=== PATIENT | female | born 1940 | race Caucasian/White ===

== ENCOUNTER 2016-05-20 17:03 | Emergency (ER) | payer MEDICARE ==
[2016-05-20 17:11] VITALS: RESP 18
--- NOTE | 2016-05-20 17:49 | ED ---
Dizziness HPI - General Chief Complaint: Dizziness Stated Complaint: light-headed, diabetic Time Seen by Provider: 05/20/16 17:34 Source: patient Mode of arrival: wheelchair Limitations: no limitations - History of Present Illness Initial Comments: This patient is a 75-year-old woman who reportedly has a history of some underlying dementia. She comes in to be evaluated after she had an episode of what she describes as being off balance. The patient had driven one of her relatives to work, and then was not feeling like she can drive back home. The patient states that a bystander there did drive the patient's car back to the patient's home, and then call a daughter who came to help. The patient has a difficult time characterizing the sensation. MD Complaint: dizziness -: hour(s) Timing: sudden onset Description: off-balance History of Same: Yes History of Trauma: No Severity: moderate Worsens With: movement Associated Symptoms: denies other symptoms - Related Data Home Medications Medication Instructions Recorded Confirmed Donepezil HCl 10 mg PO W/SUPPER 07/15/14 05/20/16 Memantine [Namenda] 10 mg PO W/SUPPER 07/15/14 05/20/16 Citalopram Hydrobromide [CeleXA] 20 mg PO W/SUPPER 05/20/16 05/20/16 Lisinopril [Zestril] 5 mg PO W/SUPPER 05/20/16 05/20/16 Simvastatin [Zocor] 40 mg PO W/SUPPER 05/20/16 05/20/16 Allergies Allergy/AdvReac Type Severity Reaction Status Date / Time No Known Allergies Allergy Verified 05/20/16 17:11 Review of Systems ROS Statement: Those systems with pertinent positive or pertinent negative responses have been documented in the HPI. ROS Other: All systems not noted in ROS Statement are negative. Constitutional: Denies: fever, weakness Respiratory: Denies: cough, dyspnea, wheezes Cardiovascular: Reports: as per HPI. Denies: chest pain, palpitations, edema, syncope Gastrointestinal: Denies: abdominal pain, vomiting, diarrhea, constipation Genitourinary: Denies: dysuria, hematuria Musculoskeletal: Denies: back pain Skin: Denies: rash Neurological: Reports: confusion. Denies: headache, weakness, numbness Past Medical History Past Medical History: Dementia, Diabetes Mellitus, Hyperlipidemia, Hypertension , Syncope Additional Past Medical History / Comment(s): dvt "years ago" DIABETIC-DIET CONTROLLED History of Any Multi-Drug Resistant Organisms: None Reported Past Surgical History: Bariatric Surgery, Cholecystectomy, Hysterectomy, Tonsillectomy Additional Past Surgical History / Comment(s): lap banding Past Anesthesia/Blood Transfusion Reactions: No Reported Reaction Past Psychological History: No Psychological Hx Reported Smoking Status: Former smoker Past Alcohol Use History: None Reported Additional Past Alcohol Use History / Comment(s): QUIT SMOKING IN 1986 STARTED AGE 17 Past Drug Use History: None Reported - Past Family History Father Family Medical History: Diabetes Mellitus Mother Family Medical History: Myocardial Infarction ([place]) General Exam Limitations: no limitations General appearance: alert, in no apparent distress Head exam: Present: atraumatic, normocephalic Eye exam: Present: normal appearance. Absent: scleral icterus, conjunctival injection Neck exam: Present: normal inspection, full ROM Respiratory exam: Present: normal lung sounds bilaterally. Absent: respiratory distress, wheezes, rales, rhonchi Cardiovascular Exam: Present: regular rate, normal rhythm, normal heart sounds. Absent: systolic murmur, diastolic murmur, rubs, gallop GI/Abdominal exam: Present: soft. Absent: distended, tenderness, guarding, mass Extremities exam: Present: normal capillary refill. Absent: pedal edema, calf tenderness Back exam: Present: normal inspection. Absent: CVA tenderness (R), CVA tenderness (L) Neurological exam: Present: alert. Absent: motor sensory deficit Psychiatric exam: Present: normal affect Skin exam: Present: warm, dry, intact, normal color. Absent: rash Course Vital Signs 05/20/16 05/20/16 17:08 17:35 Temperature 97.8 F Pulse Rate 76 Pulse Rate [ 80 Sitting] Pulse Rate [ 74 Standing] Pulse Rate [ 78 Supine] Respiratory 18 18 Rate Blood Pressure 222/97 Blood Pressure 182/83 [Sitting] Blood Pressure 172/86 [Standing] Blood Pressure 174/69 [Supine] O2 Sat by Pulse 98 Oximetry EKG Findings - EKG Results: EKG: interpreted by ERMTre, sinus rhythm (Rate 70 bpm) - Blocks, [place], Hypertrophy, ST Abn: AV and intraventricular conduction: left bundle branch block (fixed/intermittent , complete/incomplete) QRS axis and voltage: left axis deviation (-30 to -90) Medical Decision Making - Lab Data Result diagrams: 05/20/16 17:50 05/20/16 17:50 Lab Results 05/20/16 05/20/16 05/20/16 Range/Units 17:50 17:50 17:50 WBC 5.4 (3.8-10.6) k/uL RBC 4.32 (3.80-5.40) m/uL Hgb 13.4 (11.4-16.0) gm/dL Hct 40.4 (34.0-46.0) % MCV 93.4 (80.0-100.0) fL MCH 31.0 (25.0-35.0) pg MCHC 33.1 (31.0-37.0) g/dL RDW 12.4 (11.5-15.5) % Plt Count 224 (150-450) k/uL Neutrophils % 66 % Lymphocytes % 25 % Monocytes % 5 % Eosinophils % 1 % Basophils % 1 % Neutrophils # 3.6 (1.3-7.7) k/uL Lymphocytes # 1.4 (1.0-4.8) k/uL Monocytes # 0.3 (0-1.0) k/uL Eosinophils # 0.1 (0-0.7) k/uL Basophils # 0.1 (0-0.2) k/uL Sodium 139 (137-145) mmol/L Potassium 3.7 (3.5-5.1) mmol/L Chloride 101 (98-107) mmol/L Carbon Dioxide 25 (22-30) mmol/L Anion Gap 13 mmol/L BUN 11 (7-17) mg/dL Creatinine 0.74 (0.52-1.04) mg/dL Est GFR (MDRD) Af Amer >60 (>60 ml/min/1.73 sqM) Est GFR (MDRD) Non-Af >60 (>60 ml/min/1.73 sqM) Glucose 133 H (74-99) mg/dL Calcium 9.1 (8.4-10.2) mg/dL Total Bilirubin 0.7 (0.2-1.3) mg/dL AST 19 (14-36) U/L ALT 20 (9-52) U/L Alkaline Phosphatase 60 (38-126) U/L Troponin I <0.012 (0.000-0.034) ng/mL Total Protein 6.8 (6.3-8.2) g/dL Albumin 3.9 (3.5-5.0) g/dL Urine Color Urine Appearance (Clear) Urine pH (5.0-8.0) Ur Specific [place] (1.001-1.035) Urine Protein (Negative) Urine Glucose (UA) (Negative) Urine Ketones (Negative) Urine Blood (Negative) Urine Nitrate (Negative) Urine Bilirubin (Negative) Urine Urobilinogen (<2.0) mg/dL Ur Leukocyte Esterase (Negative) 05/20/16 Range/Units 18:10 WBC (3.8-10.6) k/uL RBC (3.80-5.40) m/uL Hgb (11.4-16.0) gm/dL Hct (34.0-46.0) % MCV (80.0-100.0) fL MCH (25.0-35.0) pg MCHC (31.0-37.0) g/dL RDW (11.5-15.5) % Plt Count (150-450) k/uL Neutrophils % % Lymphocytes % % Monocytes % % Eosinophils % % Basophils % % Neutrophils # (1.3-7.7) k/uL Lymphocytes # (1.0-4.8) k/uL Monocytes # (0-1.0) k/uL Eosinophils # (0-0.7) k/uL Basophils # (0-0.2) k/uL Sodium (137-145) mmol/L Potassium (3.5-5.1) mmol/L Chloride (98-107) mmol/L Carbon Dioxide (22-30) mmol/L Anion Gap mmol/L BUN (7-17) mg/dL Creatinine (0.52-1.04) mg/dL Est GFR (MDRD) Af Amer (>60 ml/min/1.73 sqM) Est GFR (MDRD) Non-Af (>60 ml/min/1.73 sqM) Glucose (74-99) mg/dL Calcium (8.4-10.2) mg/dL Total Bilirubin (0.2-1.3) mg/dL AST (14-36) U/L ALT (9-52) U/L Alkaline Phosphatase (38-126) U/L Troponin I (0.000-0.034) ng/mL Total Protein (6.3-8.2) g/dL Albumin (3.5-5.0) g/dL Urine Color Colorless Urine Appearance Clear (Clear) Urine pH 5.5 (5.0-8.0) Ur Specific [place] 1.002 (1.001-1.035) Urine Protein Negative (Negative) Urine Glucose (UA) Negative (Negative) Urine Ketones Negative (Negative) Urine Blood Negative (Negative) Urine Nitrate Negative (Negative) Urine Bilirubin Negative (Negative) Urine Urobilinogen <2.0 (<2.0) mg/dL Ur Leukocyte Esterase Negative (Negative) Disposition Clinical Impression: Dizziness Disposition: HOME SELF-CARE Condition: Good Instructions: Dizziness (ED) Referrals: Remy Castle DO [Primary Care Provider] - 1-2 days
[2016-05-20 18:13] LABS: Basophils # (A) 0.1 k/uL (0-0.2); Basophils % (A) 1 %; CH 32.4; CHCM 34.8; Eosinophils # (A) 0.1 k/uL (0-0.7); Eosinophils % (A) 1 %; HCT 40.4 % (34.0-46.0); HGB 13.4 gm/dL (11.4-16.0); Luc # (Auto) 0.09; Luc % (Auto) 2; Lymphocytes # (A) 1.4 k/uL (1.0-4.8); Lymphocytes % (A) 25 %; MCHC 33.1 g/dL (31.0-37.0); MCV 93.4 fL (80.0-100.0); Mean Platelet Volume 7.2; Monocytes # (A) 0.3 k/uL (0-1.0); Monocytes % (A) 5 %; Neutrophils # (A) 3.6 k/uL (1.3-7.7); Neutrophils % (A) 66 %; RBC 4.32 m/uL (3.80-5.40); RDW 12.4 % (11.5-15.5); WBC 5.4 k/uL (3.8-10.6)
[2016-05-20 18:25] LABS: ALT 20 U/L (9-52); AST 19 U/L (14-36); Alkaline Phosphatase 60 U/L (38-126); Anion Gap 13 mmol/L; Blood Urea Nitrogen 11 mg/dL (7-17); Calcium 9.1 mg/dL (8.4-10.2); Carbon Dioxide 25 mmol/L (22-30); Chloride 101 mmol/L (98-107); Glucose 133 mg/dL (74-99); Non-African American GFR(MDRD) >60 (>60 ml/min/1.73 sqM); Potassium 3.7 mmol/L (3.5-5.1); Sodium 139 mmol/L (137-145); Total Bilirubin 0.7 mg/dL (0.2-1.3); Total Protein 6.8 g/dL (6.3-8.2)
[2016-05-20 18:26] LABS: Appearance,Urine Clear (Clear); Bilirubin,Urine Negative (Negative); Glucose,Urine (UA) Negative (Negative); Ketones,Urine Negative (Negative); Leukocyte Esterase,Urine Negative (Negative); Nitrite,Urine Negative (Negative); PH, Urine 5.5 (5.0-8.0); Protein,Urine Negative (Negative); Specific Gravity,Urine 1.002 (1.001-1.035); UA Billing (MACRO vs. MICRO) CHEM; Urobilinogen,Urine <2.0 mg/dL (<2.0)
[2016-05-20 19:16] VITALS: BP 167/75; PULSE 66; TEMP 98.3
== END 2016-05-20 19:25 | disposition home or self-care (01) ==
LOC: EC 17:03
DX: R42 Dizziness and giddiness (principal); F03.90 Unspecified dementia, unspecified severity, without behavioral disturbance, psychotic disturbance, mood disturbance, and anxiety; E78.5 Hyperlipidemia, unspecified; I10 Essential (primary) hypertension; Z87.891 Personal history of nicotine dependence
CPT/HCPCS: 36415; 80053; 81003; 84484; 85025; 93005; 99284

== ENCOUNTER 2016-07-22 18:50 | Emergency (ER) | payer MEDICARE ==
[2016-07-22 19:00] VITALS: PULSE 62
[2016-07-22] MEDS ORDERED: SODIUM CHLORIDE 0.9% 500 ML IV STA (19:09)
[2016-07-22] MEDS ORDERED: MECLIZINE 12.5 MG TAB PO STA (19:10)
--- NOTE | 2016-07-22 19:12 | ED ---
General Adult HPI - General Chief complaint: Weakness Stated complaint: dizzy Time Seen by Provider: 07/22/16 19:04 Source: patient, family, RN notes reviewed Mode of arrival: wheelchair Limitations: no limitations - History of Present Illness Initial comments: Patient is a pleasant 75-year-old female presenting to the emergency department for not feeling well. Patient has a difficult time describing her symptoms. Patient does admit to feeling lightheaded. No spinning type sensation. No chest pain. No weakness. Patient does feel somewhat confused. History is limited. Onset of symptoms was just ago - Related Data Home Medications Medication Instructions Recorded Confirmed Citalopram Hydrobromide [CeleXA] 20 mg PO W/LUNCH 05/20/16 07/22/16 Lisinopril [Zestril] 5 mg PO W/LUNCH 05/20/16 07/22/16 Memantine HCl/Donepezil HCl 1 cap PO W/LUNCH 07/22/16 07/22/16 [Namzaric 21 mg-10 mg Capsule] Allergies Allergy/AdvReac Type Severity Reaction Status Date / Time No Known Allergies Allergy Verified 07/22/16 19:26 Review of Systems ROS Statement: Those systems with pertinent positive or pertinent negative responses have been documented in the HPI. ROS Other: All systems not noted in ROS Statement are negative. Constitutional: Denies: fever Eyes: Denies: eye pain ENT: Denies: ear pain Respiratory: Denies: cough Cardiovascular: Denies: chest pain Endocrine: Denies: fatigue Gastrointestinal: Denies: abdominal pain Genitourinary: Denies: urgency Musculoskeletal: Denies: back pain Skin: Denies: rash Neurological: Reports: confusion. Denies: headache Past Medical History Past Medical History: Dementia, Diabetes Mellitus, Hyperlipidemia, Hypertension , Syncope Additional Past Medical History / Comment(s): dvt "years ago" DIABETIC-DIET CONTROLLED History of Any Multi-Drug Resistant Organisms: None Reported Past Surgical History: Bariatric Surgery, Cholecystectomy, Hysterectomy, Tonsillectomy Additional Past Surgical History / Comment(s): lap banding Past Anesthesia/Blood Transfusion Reactions: No Reported Reaction Past Psychological History: No Psychological Hx Reported Smoking Status: Former smoker Past Alcohol Use History: None Reported Additional Past Alcohol Use History / Comment(s): QUIT SMOKING IN 1986 STARTED AGE 17 Past Drug Use History: None Reported - Past Family History Father Family Medical History: Diabetes Mellitus Mother Family Medical History: Myocardial Infarction ([place]) General Exam Limitations: no limitations General appearance: alert, in no apparent distress Head exam: Present: atraumatic Eye exam: Present: normal appearance, PERRL, EOMI. Absent: nystagmus ENT exam: Present: normal oropharynx Neck exam: Present: normal inspection Respiratory exam: Present: normal lung sounds bilaterally Cardiovascular Exam: Present: regular rate, normal rhythm GI/Abdominal exam: Present: soft. Absent: tenderness Extremities exam: Present: normal inspection. Absent: pedal edema, calf tenderness Neurological exam: Present: alert, CN II-XII intact. Absent: motor sensory deficit Expanded Neurological exam: Present: other (There may be minimal slurred speech) Patient oriented to: Present: person, place. Absent: time (Patient is oriented to month however not year) Cranial nerves: EOM's Intact: Normal, Facial Sensation: Normal Sensory exam: Upper Extremity Light Touch: Normal, Lower Extremity Light Touch: Normal Motor strength exam: RUE: 5, LUE: 5, RLE: 5, LLE: 5 Psychiatric exam: Present: normal affect, normal mood Skin exam: Present: normal color Course Vital Signs 07/22/16 07/22/16 18:57 21:08 Temperature 98.5 F 97.8 F Pulse Rate 62 Respiratory 16 58 H Rate Blood Pressure 206/90 165/78 O2 Sat by Pulse 96 98 Oximetry - Reevaluation(s) Reevaluation #1: 07/22/16 20:55 Patient reevaluated. Patient and family updated. EKG Findings - EKG Comments: EKG Findings:: Sinus bradycardia 52. VT 172. QRS 154. QT 464. QTC 431. Left axis. Left bundle branch block. Nonspecific ST-T. Medical Decision Making - Medical Decision Making pt reevaluated and updated. case discussed with dr. mills at [facility] who will accept transfer - Lab Data Result diagrams: 07/22/16 19:30 07/22/16 19:30 Lab Results 07/22/16 07/22/16 07/22/16 Range/Units 19:13 19:30 19:30 WBC 4.7 (3.8-10.6) k/uL RBC 4.57 (3.80-5.40) m/uL Hgb 14.7 (11.4-16.0) gm/dL Hct 43.5 (34.0-46.0) % MCV 95.3 (80.0-100.0) fL MCH 32.1 (25.0-35.0) pg MCHC 33.7 (31.0-37.0) g/dL RDW 13.0 (11.5-15.5) % Plt Count 217 (150-450) k/uL Neutrophils % 59 % Lymphocytes % 31 % Monocytes % 5 % Eosinophils % 3 % Basophils % 1 % Neutrophils # 2.7 (1.3-7.7) k/uL Lymphocytes # 1.4 (1.0-4.8) k/uL Monocytes # 0.2 (0-1.0) k/uL Eosinophils # 0.1 (0-0.7) k/uL Basophils # 0.0 (0-0.2) k/uL PT (9.0-12.0) sec INR (<1.1) APTT (22.0-30.0) sec Sodium (137-145) mmol/L Potassium (3.5-5.1) mmol/L Chloride (98-107) mmol/L Carbon Dioxide (22-30) mmol/L Anion Gap mmol/L BUN (7-17) mg/dL Creatinine (0.52-1.04) mg/dL Est GFR (MDRD) Af Amer (>60 ml/min/1.73 sqM) Est GFR (MDRD) Non-Af (>60 ml/min/1.73 sqM) Glucose (74-99) mg/dL POC Glucose (mg/dL) 95 (75-99) mg/dL POC Glu Nursing Unit Clerk ID Julieta Veloz Calcium (8.4-10.2) mg/dL Magnesium (1.6-2.3) mg/dL Total Bilirubin (0.2-1.3) mg/dL AST (14-36) U/L ALT (9-52) U/L Alkaline Phosphatase (38-126) U/L Total Creatine Kinase 45 (30-135) U/L CK-MB (CK-2) 0.8 (0.0-2.4) ng/mL CK-MB (CK-2) Rel Index 1.8 Troponin I <0.012 (0.000-0.034) ng/mL Total Protein (6.3-8.2) g/dL Albumin (3.5-5.0) g/dL 07/22/16 07/22/16 Range/Units 19:30 19:30 WBC (3.8-10.6) k/uL RBC (3.80-5.40) m/uL Hgb (11.4-16.0) gm/dL Hct (34.0-46.0) % MCV (80.0-100.0) fL MCH (25.0-35.0) pg MCHC (31.0-37.0) g/dL RDW (11.5-15.5) % Plt Count (150-450) k/uL Neutrophils % % Lymphocytes % % Monocytes % % Eosinophils % % Basophils % % Neutrophils # (1.3-7.7) k/uL Lymphocytes # (1.0-4.8) k/uL Monocytes # (0-1.0) k/uL Eosinophils # (0-0.7) k/uL Basophils # (0-0.2) k/uL PT 10.7 (9.0-12.0) sec INR 1.1 (<1.1) APTT 22.3 (22.0-30.0) sec Sodium 142 (137-145) mmol/L Potassium 3.9 (3.5-5.1) mmol/L Chloride 104 (98-107) mmol/L Carbon Dioxide 29 (22-30) mmol/L Anion Gap 9 mmol/L BUN 9 (7-17) mg/dL Creatinine 0.72 (0.52-1.04) mg/dL Est GFR (MDRD) Af Amer >60 (>60 ml/min/1.73 sqM) Est GFR (MDRD) Non-Af >60 (>60 ml/min/1.73 sqM) Glucose 94 (74-99) mg/dL POC Glucose (mg/dL) (75-99) mg/dL POC Glu Nursing Unit Clerk ID Calcium 9.6 (8.4-10.2) mg/dL Magnesium 2.1 (1.6-2.3) mg/dL Total Bilirubin 0.6 (0.2-1.3) mg/dL AST 18 (14-36) U/L ALT 24 (9-52) U/L Alkaline Phosphatase 68 (38-126) U/L Total Creatine Kinase (30-135) U/L CK-MB (CK-2) (0.0-2.4) ng/mL CK-MB (CK-2) Rel Index Troponin I (0.000-0.034) ng/mL Total Protein 7.2 (6.3-8.2) g/dL Albumin 4.0 (3.5-5.0) g/dL - Radiology Data Radiology results: image reviewed (This x-ray shows mild vascular prominence. Old rib fracture. Computed tomography scan of the brain shows 1.3 cm interpretable hemorrhage left parietal lobe.) Disposition Clinical Impression: Acute intracranial hemorrhage Disposition: OTHER INSTITUTION NOT DEFINED - Out of Hospital Transfer - Req. Specs Out of Hospital Transfer - Requested Specifics: Other Emergency Center
[2016-07-22 19:14] LABS: Glucose,Whole Blood 95 mg/dL (75-99)
[2016-07-22 19:45] LABS: Basophils % (A) 1 %; CH 31.8; CHCM 33.5; Eosinophils # (A) 0.1 k/uL (0-0.7); Eosinophils % (A) 3 %; HCT 43.5 % (34.0-46.0); HDW 2.47; HGB 14.7 gm/dL (11.4-16.0); Luc % (Auto) 2; Lymphocytes # (A) 1.4 k/uL (1.0-4.8); Lymphocytes % (A) 31 %; MCH 32.1 pg (25.0-35.0); MCHC 33.7 g/dL (31.0-37.0); MCV 95.3 fL (80.0-100.0); Mean Platelet Volume 6.7; Monocytes # (A) 0.2 k/uL (0-1.0); Monocytes % (A) 5 %; Neutrophils # (A) 2.7 k/uL (1.3-7.7); Neutrophils % (A) 59 %; RBC 4.57 m/uL (3.80-5.40); WBC 4.7 k/uL (3.8-10.6); WBC (Perox) 4.63
[2016-07-22 19:53] LABS: INR 1.1 (<1.1); Partial Thromboplastin Time 22.3 sec (22.0-30.0); Prothrombin Time 10.7 sec (9.0-12.0)
[2016-07-22 20:01] LABS: Creatine Kinase 45 U/L (30-135)
[2016-07-22 20:03] LABS: ALT 24 U/L (9-52); AST 18 U/L (14-36); Alkaline Phosphatase 68 U/L (38-126); Anion Gap 9 mmol/L; Blood Urea Nitrogen 9 mg/dL (7-17); Calcium 9.6 mg/dL (8.4-10.2); Carbon Dioxide 29 mmol/L (22-30); Chloride 104 mmol/L (98-107); Glucose 94 mg/dL (74-99); Magnesium 2.1 mg/dL (1.6-2.3); Non-African American GFR(MDRD) >60 (>60 ml/min/1.73 sqM); Potassium 3.9 mmol/L (3.5-5.1); Sodium 142 mmol/L (137-145); Total Bilirubin 0.6 mg/dL (0.2-1.3); Total Protein 7.2 g/dL (6.3-8.2)
[2016-07-22 20:13] LABS: Creatine Kinase MB 0.8 ng/mL (0.0-2.4); Troponin I <0.012 ng/mL (0.000-0.034)
--- NOTE | 2016-07-22 20:31 | XR ---
EXAMINATION TYPE: XR chest 2V DATE OF EXAM: 07/22/2016 8:11 PM COMPARISON: 07/14/2014 INDICATION: Weakness dizziness nausea TECHNIQUE: Single frontal view of the chest is obtained. FINDINGS: The heart size is normal. The pulmonary vasculature is prominent. The lungs are clear. Old right rib fractures are evident. IMPRESSION: 1. Mild vascular prominence. No suspicious infiltrates. 2. Some senile emphysematous change may be present.
--- NOTE | 2016-07-22 20:38 | CT ---
EXAMINATION TYPE: CT brain wo con DATE OF EXAM: 07/22/2016 8:23 PM COMPARISON: NONE INDICATION: Pt states of being light headed and confused. DLP: 1051.2 mGycm, Automated exposure control for dose reduction was used. CONTRAST: None CT of the brain is performed utilizing 3 mm thick sections through the posterior fossa and 3 mm thick sections through the remaining calvarium. Study is performed within 24 hours of arrival to the hosp ital. There is a 1.3 cm hyperdensity measuring 60-70 Hounsfield units within the subcortical left parietal lobe. This is a new finding from 07/14/2014. An acute hemorrhage should be considered. Underlying mass could be considered. Significant vasogenic edema is not identified suggesting hemorrhage more likely within the differential. There is periventricular white matter hypodensity, likely on the basis of chronic white matter ischem ic changes. Some minimal subcortical hemorrhage may be near the left posterior frontal lobe gyrus. Se eri 5 image 39. No acute infarcts are evident. Ventricles and sulci are appropriate for the patient age. Paranasal sinuses and mastoid air cells within the [id number] are clear. Hyperostosis frontalis in ternus is present. IMPRESSIONS: 1. 1.3 cm intraparenchymal hemorrhage left parietal lobe. 2. Small intraparenchymal hemorrhage at the left posterior frontal lobe vertex. 3. Report was called to the emergency room physician by Dr. Eason by telephone 2030 hours 07/22/2016 . 4. Atrophy with periventricular white matter ischemic changes.
[2016-07-22 21:08] VITALS: BP 165/78; RESP 58; TEMP 97.8
== END 2016-07-22 21:50 | disposition short-term general hospital (02) ==
LOC: EC 18:50
DX: I62.9 Nontraumatic intracranial hemorrhage, unspecified (principal); F03.90 Unspecified dementia, unspecified severity, without behavioral disturbance, psychotic disturbance, mood disturbance, and anxiety; I10 Essential (primary) hypertension; Z87.891 Personal history of nicotine dependence; Z79.899 Other long term (current) drug therapy
CPT/HCPCS: 36415; 70450; 71020; 80053; 82550; 82553; 83735; 84484; 85025; 85610; 85730; 93005; 99285

== ENCOUNTER 2018-06-12 10:37 | Inpatient (IN) | payer MEDICARE ==
[2018-06-12] MEDS ORDERED: SODIUM CHLORIDE 0.9% 500 ML 500 ML IV ONE (10:55)
[2018-06-12] MEDS ORDERED: fentaNYL (PF) 50 MCG/ML 2 ML AMP IVP STA (10:57)
--- NOTE | 2018-06-12 11:00 | ED ---
General Adult HPI - General Chief complaint: Fall Stated complaint: trip & fall Time Seen by Provider: 06/12/18 10:39 Source: patient, EMS Mode of arrival: EMS Limitations: no limitations - History of Present Illness Initial comments: Dictation was produced using [employer] dictation software. please excuse any grammatical, word or spelling errors. Chief Complaint: 77-year-old female past medical history dementia, diabetes, d yslipidemia presents after fall. History of Present Illness: Patient is a 77-year-old female presents with hip pain and right upper extremity pain after fall. Patient has a history of dementia. She is a poor historian. Daughter at bedside is able to assist in providing HPI. Patient lives alone at home by herself. She does not recall being as active instead transpired prior to the fall. She states she however did not lose consciousness. Patient states that she fell. She does believe maybe she may have tripped over her own feet or carpet. She does complain of some right forearm pain and left hip pain. Patient is brought in by EMS. EMS report stable vital signs upon arrival. The ROS documented in this emergency department record has been reviewed and confirmed by me. Those systems with pertinent positive or negative responses have been documented in the HPI. All other systems are other negative and/or noncontributory. PHYSICAL EXAM: General Impression: Alert and oriented x3, not in acute distress HEENT: Normocephalic atraumatic, extra-ocular movements intact, pupils equal and reactive to light bilaterally, mucous membranes moist. Cardiovascular: Heart regular rate and rhythm, S1&S2 audible, no murmurs, rubs or gallops Chest: Lungs clear to auscultation bilaterally, no rhonchi, no wheeze, no rales Abdomen: Bowel sounds present, abdomen soft, non-tender, non-distended, no organomegaly Musculoskeletal: Short and externally rotated left lower extremity. Patient has some tenderness to palpation over the right forearm. Upper extremities otherwise ranged and removed without any complications. Patient does have tenderness to palpation of the left lateral greater trochanter. Motor: no focal deficits noted Neurological: CN II-XII grossly intact, no focal motor or sensory deficits noted Skin: Intact with no visualized rashes Psych: Normal affect and mood ED course: 77-year-old female presents after fall. Physical examination positive for pain to the right forearm and possible acute traumatic injury to the left hip. Vital signs upon arrival are within acceptable limits. Patient otherwise well-appearing. Patient does not have any external signs of injury to the head, neck, abdomen. Laboratory evaluation obtained. CBC, coag panel, metabolic panel is unremarkable. Urinalysis is negative. Head CT shows no acute processes. C-spine mind CT shows no acute processes. CT of the left hip shows left more neck fracture of the subcapital and displaced. Patient's case discussed with Sandor VORA. Patient be admitted to Dr. Sharif. Medicine is on consult. EKG interpretation: Ventricular rate 74, paced rhythm, [place] interval 182, QS 174, QTc 528. No [place] prolongation, no ST or T-wave changes noted. Overall, this EKG is unremarkable - Related Data Home Medications Medication Instructions Recorded Confirmed Citalopram Hydrobromide [CeleXA] 20 mg PO DAILY 05/20/16 06/12/18 Lisinopril [Zestril] 5 mg PO DAILY 05/20/16 06/12/18 Atorvastatin [Lipitor] 40 mg PO HS 06/12/18 06/12/18 HYDROcodone/APAP 5-325MG [[place] 1 tab PO Q4HR PRN 06/12/18 06/12/18 5-325] Metoprolol Tartrate [Lopressor] 12.5 mg PO DAILY 06/12/18 06/12/18 Pantoprazole Sodium [Protonix] 40 mg PO DAILY 06/12/18 06/12/18 QUEtiapine [SEROquel] 25 mg PO HS 06/12/18 06/12/18 levETIRAcetam [Keppra] 250 mg PO Q12HR 06/12/18 06/12/18 Allergies Allergy/AdvReac Type Severity Reaction Status Date / Time No Known Allergies Allergy Verified 06/12/18 10:58 Review of Systems ROS Statement: Those systems with pertinent positive or pertinent negative responses have been documented in the HPI. ROS Other: All systems not noted in ROS Statement are negative. Past Medical History Past Medical History: Dementia, Diabetes Mellitus, Hyperlipidemia, Hypertension, Syncope Additional Past Medical History / Comment(s): dvt "years ago" DIABETIC-DIET CONTROLLED History of Any Multi-Drug Resistant Organisms: None Reported Past Surgical History: Bariatric Surgery, Cholecystectomy, Hysterectomy, Tonsillectomy Additional Past Surgical History / Comment(s): lap banding Past Anesthesia/Blood Transfusion Reactions: No Reported Reaction Past Psychological History: No Psychological Hx Reported Smoking Status: Former smoker Past Alcohol Use History: None Reported Past Drug Use History: None Reported - Past Family History Father Family Medical History: Diabetes Mellitus Mother Family Medical History: Myocardial Infarction ([place]) General Exam Limitations: no limitations Course Vital Signs 06/12/18 06/12/18 10:38 12:23 Temperature 97.5 F L Pulse Rate 74 74 Respiratory 18 18 Rate Blood Pressure 163/71 179/87 O2 Sat by Pulse 98 98 Oximetry Medical Decision Making - Lab Data Result diagrams: 06/12/18 11:30 06/12/18 11:30 Lab Results 06/12/18 06/12/18 06/12/18 Range/Units 11:30 11:30 11:30 WBC 8.2 (3.8-10.6) k/uL RBC 4.35 (3.80-5.40) m/uL Hgb 13.7 (11.4-16.0) gm/dL Hct 42.2 (34.0-46.0) % MCV 96.9 (80.0-100.0) fL MCH 31.6 (25.0-35.0) pg MCHC 32.6 (31.0-37.0) g/dL RDW 13.5 (11.5-15.5) % Plt Count 215 (150-450) k/uL Neutrophils % 83 % Lymphocytes % 12 % Monocytes % 4 % Eosinophils % 1 % Basophils % 0 % Neutrophils # 6.8 (1.3-7.7) k/uL Lymphocytes # 1.0 (1.0-4.8) k/uL Monocytes # 0.3 (0-1.0) k/uL Eosinophils # 0.1 (0-0.7) k/uL Basophils # 0.0 (0-0.2) k/uL PT 10.3 (9.0-12.0) sec INR 1.0 (<1.2) APTT 21.3 L (22.0-30.0) sec Sodium 141 (137-145) mmol/L Potassium 4.6 (3.5-5.1) mmol/L Chloride 105 (98-107) mmol/L Carbon Dioxide 29 (22-30) mmol/L Anion Gap 7 mmol/L BUN 19 H (7-17) mg/dL Creatinine 0.61 (0.52-1.04) mg/dL Est GFR (CKD-EPI)AfAm >90 (>60 ml/min/1.73 sqM) Est GFR (CKD-EPI)NonAf 88 (>60 ml/min/1.73 sqM) Glucose 114 H (74-99) mg/dL POC Glucose (mg/dL) (75-99) mg/dL POC Glu Information Tech ID Calcium 9.6 (8.4-10.2) mg/dL Magnesium 1.9 (1.6-2.3) mg/dL Total Bilirubin 0.9 (0.2-1.3) mg/dL AST 24 (14-36) U/L ALT 33 (9-52) U/L Alkaline Phosphatase 64 (38-126) U/L Creatine Kinase 44 (30-135) U/L Troponin I (0.000-0.034) ng/mL Total Protein 6.5 (6.3-8.2) g/dL Albumin 3.7 (3.5-5.0) g/dL Urine Color Urine Appearance (Clear) Urine pH (5.0-8.0) Ur Specific [place] (1.001-1.035) Urine Protein (Negative) Urine Glucose (UA) (Negative) Urine Ketones (Negative) Urine Blood (Negative) Urine Nitrite (Negative) Urine Bilirubin (Negative) Urine Urobilinogen (<2.0) mg/dL Ur Leukocyte Esterase (Negative) Urine RBC (0-5) /hpf Ur Squamous Epith Cells (0-4) /hpf Urine Bacteria (None) /hpf Urine Mucus (None) /hpf 06/12/18 06/12/18 06/12/18 Range/Units 11:30 11:35 12:35 WBC (3.8-10.6) k/uL RBC (3.80-5.40) m/uL Hgb (11.4-16.0) gm/dL Hct (34.0-46.0) % MCV (80.0-100.0) fL MCH (25.0-35.0) pg MCHC (31.0-37.0) g/dL RDW (11.5-15.5) % Plt Count (150-450) k/uL Neutrophils % % Lymphocytes % % Monocytes % % Eosinophils % % Basophils % % Neutrophils # (1.3-7.7) k/uL Lymphocytes # (1.0-4.8) k/uL Monocytes # (0-1.0) k/uL Eosinophils # (0-0.7) k/uL Basophils # (0-0.2) k/uL PT (9.0-12.0) sec INR (<1.2) APTT (22.0-30.0) sec Sodium (137-145) mmol/L Potassium (3.5-5.1) mmol/L Chloride (98-107) mmol/L Carbon Dioxide (22-30) mmol/L Anion Gap mmol/L BUN (7-17) mg/dL Creatinine (0.52-1.04) mg/dL Est GFR (CKD-EPI)AfAm (>60 ml/min/1.73 sqM) Est GFR (CKD-EPI)NonAf (>60 ml/min/1.73 sqM) Glucose (74-99) mg/dL POC Glucose (mg/dL) 107 H (75-99) mg/dL POC Glu Information Tech ID Debbie Gomez Calcium (8.4-10.2) mg/dL Magnesium (1.6-2.3) mg/dL Total Bilirubin (0.2-1.3) mg/dL AST (14-36) U/L ALT (9-52) U/L Alkaline Phosphatase (38-126) U/L Creatine Kinase (30-135) U/L Troponin I <0.012 (0.000-0.034) ng/mL Total Protein (6.3-8.2) g/dL Albumin (3.5-5.0) g/dL Urine Color Yellow Urine Appearance Clear (Clear) Urine pH 6.5 (5.0-8.0) Ur Specific [place] 1.017 (1.001-1.035) Urine Protein Trace H (Negative) Urine Glucose (UA) Negative (Negative) Urine Ketones Negative (Negative) Urine Blood Negative (Negative) Urine Nitrite Negative (Negative) Urine Bilirubin Negative (Negative) Urine Urobilinogen <2.0 (<2.0) mg/dL Ur Leukocyte Esterase Large H (Negative) Urine RBC 4 (0-5) /hpf Ur Squamous Epith Cells 2 (0-4) /hpf Urine Bacteria Rare H (None) /hpf Urine Mucus Rare H (None) /hpf Disposition Clinical Impression: Fall, Hip fracture, left Disposition: ADMITTED IP TO THIS HOSP Condition: Fair Referrals: Remy Castle DO [Primary Care Provider] - 1-2 days Decision Time: 13:08
[2018-06-12 11:37] LABS: Glucose,Whole Blood 107 mg/dL (75-99)
[2018-06-12 11:48] LABS: Basophils % (A) 0 %; Eosinophils # (A) 0.1 k/uL (0-0.7); Eosinophils % (A) 1 %; HCT 42.2 % (34.0-46.0); HGB 13.7 gm/dL (11.4-16.0); Lymphocytes % (A) 12 %; MCH 31.6 pg (25.0-35.0); MCHC 32.6 g/dL (31.0-37.0); MCV 96.9 fL (80.0-100.0); Mean Platelet Volume 6.5; Monocytes # (A) 0.3 k/uL (0-1.0); Monocytes % (A) 4 %; Neutrophils # (A) 6.8 k/uL (1.3-7.7); Neutrophils % (A) 83 %; Platelet Count 215 k/uL (150-450); RBC 4.35 m/uL (3.80-5.40); RDW 13.5 % (11.5-15.5); WBC 8.2 k/uL (3.8-10.6)
[2018-06-12 11:57] LABS: ALT 33 U/L (9-52); AST 24 U/L (14-36); Albumin 3.7 g/dL (3.5-5.0); Alkaline Phosphatase 64 U/L (38-126); Anion Gap 7 mmol/L; Blood Urea Nitrogen 19 mg/dL (7-17); Calcium 9.6 mg/dL (8.4-10.2); Carbon Dioxide 29 mmol/L (22-30); Chloride 105 mmol/L (98-107); Creatine Kinase 44 U/L (30-135); Glucose 114 mg/dL (74-99); Magnesium 1.9 mg/dL (1.6-2.3); Potassium 4.6 mmol/L (3.5-5.1); Sodium 141 mmol/L (137-145); Total Bilirubin 0.9 mg/dL (0.2-1.3); Total Protein 6.5 g/dL (6.3-8.2)
[2018-06-12 12:04] LABS: Prothrombin Time 10.3 sec (9.0-12.0)
[2018-06-12 12:05] LABS: Partial Thromboplastin Time 21.3 sec (22.0-30.0)
--- NOTE | 2018-06-12 12:16 | XR ---
EXAMINATION TYPE: XR chest 1V portable DATE OF EXAM: 06/12/2018 COMPARISON: 07/22/2016 HISTORY: Chest pain after a fall TECHNIQUE: Single frontal view of the chest is obtained. FINDINGS: There are chronic right posterior mid rib deformities. There is diffuse osseous deminerali zation. Chronic interstitial prominence is seen. Multi lead left-sided cardiac device is present. Car diomediastinal silhouette is within normal limits. IMPRESSION: Chronic changes with no acute cardiopulmonary process.
--- NOTE | 2018-06-12 12:17 | XR ---
EXAMINATION TYPE: XR forearm RT DATE OF EXAM: 06/12/2018 CLINICAL HISTORY: Right forearm pain after a fall TECHNIQUE: Two views of the right forearm are obtained. COMPARISON: None. FINDINGS: There is no acute fracture or dislocation seen in the right radius or ulna. The right elb ow and wrist joints appear within normal limits other than joint space narrowing at the first metacar pal phalangeal joint from degenerative change. The overlying soft tissue appears within normal limit s. IMPRESSION: There is no acute fracture or dislocation seen in the right radius or ulna.
--- NOTE | 2018-06-12 12:21 | XR ---
EXAMINATION TYPE: XR pelvis AP view DATE OF EXAM: 06/12/2018 CLINICAL HISTORY: Pain after fall injury. TECHNIQUE: A single AP view of the pelvis is obtained. COMPARISON: None. FINDINGS: Osseous structures are demineralized. There is comminuted impacted subcapital fracture left proximal femur. No hip joint dislocation is seen. Mild to moderate narrowing and spurring both hip j oints is present. Some sclerosis felt present in the right sacroiliac joint. Pubic symphysis is maint ained. IMPRESSION: There is an acute impacted subcapital fracture left hip.
--- NOTE | 2018-06-12 12:31 | CT ---
EXAMINATION TYPE: CT brain cspine wo con DATE OF EXAM: 06/12/2018 COMPARISON: CT brain July 22, 2016. CT cervical spine July 14, 2014 HISTORY: Trip and fall injury with headache and neck pain. CT DLP: 1362.9 mGycm. Automated Exposure Control for Dose Reduction was Utilized. TECHNIQUE: CT scan of the head and cervical spine are performed without contrast. FINDINGS: There is no acute intracranial hemorrhage or midline shift identified. There is ventricul ar and sulcal prominence. There is low-attenuation in the deep and periventricular white matter. The calvarium is intact. There is stable prominent bony projection left frontal region axial image 40 pos sible osteoma. The globes are intact and the visualized sinuses are clear. Cervical spine is suboptimally evaluated due to marked underlying dextroconvex rotary scoliosis cente red in the thoracic spine. No acute displaced fracture is clearly seen. Vertebral body heights and di sc space heights in the cervical spine are fairly well-maintained. Large bridging anterior osteophyte s in the visualized thoracic spine are redemonstrated. Spinal canal is preserved. Review of axial reji ges shows multilevel uncovertebral facet degenerative changes contributing to multilevel neural moises inal narrowing in the cervical spine. Visualized lung apices are clear. There is partial visualizatio n of pacemaker wires. Majority of thyroid gland is outside the field of view. Exaggerated cervical cu rvature is present. IMPRESSION: 1. There is no acute fracture or dislocation evident in the cervical spine. 2. No acute intracranial hemorrhage or midline shift is seen. Stable mild to moderate diffuse cerebra l atrophy and moderate chronic small vessel ischemic change.
--- NOTE | 2018-06-12 12:33 | CT ---
EXAMINATION TYPE: CT hip LT wo con DATE OF EXAM: 06/12/2018 COMPARISON: X-ray 06/12/2018 HISTORY: trip and fall CT DLP: 377.4 mGycm Automated exposure control for dose reduction was used. FINDINGS: Osteitis pubis condensans noted there is a displaced left femoral neck fracture likely subcapital. Vascular calcifications are noted. Arthropathy noted IMPRESSION: DISPLACED LEFT FEMORAL NECK FRACTURE MOST LIKELY SUBCAPITAL.
[2018-06-12 13:01] LABS: Appearance,Urine Clear (Clear); Bacteria,Urine Rare /hpf; Bilirubin,Urine Negative (Negative); Blood,Urine Negative (Negative); Color,Urine Yellow; Glucose,Urine (UA) Negative (Negative); Ketones,Urine Negative (Negative); Leukocyte Esterase,Urine Large (Negative); Mucus,Urine Rare /hpf; Nitrite,Urine Negative (Negative); PH, Urine 6.5 (5.0-8.0); Protein,Urine Trace (Negative); RBC,Urine 4 /hpf (0-5); Specific Gravity,Urine 1.017 (1.001-1.035); Squamous Epithelial Cell,Urine 2 /hpf (0-4); Urobilinogen,Urine <2.0 mg/dL (<2.0)
[2018-06-12] MEDS ORDERED: NALOXONE 0.4 MG/ML 1 ML VIAL IV PRN (13:05)
[2018-06-12] MEDS ORDERED: ACETAMINOPHEN TAB 325 MG TAB PO PRN (13:05)
[2018-06-12] MEDS ORDERED: ONDANSETRON 4 MG/2 ML VIAL IVP PRN (13:05)
[2018-06-12] MEDS: SODIUM CHLORIDE 0.9% 1,000 ML IV SCH ×2 (13:35→23:32)
[2018-06-12] MEDS: MORPHINE SULFATE 4 MG/ML SYRINGE IV PRN ×2 (14:56→23:31)
--- NOTE | 2018-06-12 15:41 | P.HPOR ---
History of Present Illness H&P Date: 06/12/18 Chief Complaint: Left hip pain patient is a pleasant 77-year-old female with history of dementia. She is somewhat of a poor historian, but she attempts to answer questions and follows commands. She complains of left hip pain. She isn't been able to mobilize or get out of bed. She says that she does ambulate to some degree but according to her chart she is a very limited ambulator with assistance her walker. Apparently she sustained a fall however it was unwitnessed. She had subsequent pain and difficulty with any sort of an ablation of mobilization. Her pain was localized toward her left hip and she was brought into the emergency room where she was found have a left femoral neck displaced fracture. We're consult in in this regard. She denies any headaches or nausea or vomiting. She denies any loss of consciousness. She denies any chest pain shortness of breath. She denies any problems with her left hip prior to her injury. Review of Systems as stated per HPI. She has difficulty answering questions but is able to follow some commands. She denies any prior problems with her left hip. She says she is normally and ambulate with assistance. Denies any chest pain shortness breath Past Medical History Past Medical History: CVA/TIA, Dementia, Diabetes Mellitus, Hyperlipidemia, H ypertension, Memory Impairment, Osteoarthritis (OA), Syncope Additional Past Medical History / Comment(s): NIDDM type II-diet controlled, CVA-brain bleed 2018, DVT lower leg years ago, possible kidney stones, lower GI bleed, History of Any Multi-Drug Resistant Organisms: None Reported Past Surgical History: Bariatric Surgery, Cholecystectomy, Hysterectomy, Pacemaker, Tonsillectomy Additional Past Surgical History / Comment(s): 2018 pacemaker insertion done at [facility], lap banding, colonoscopy/polypectomy-benign Past Anesthesia/Blood Transfusion Reactions: No Reported Reaction Type of Cardiac Device: Permanent Pacemaker Device Placement Date:: 2017 Smoking Status: Former smoker - Past Family History Father Family Medical History: Diabetes Mellitus Mother Family Medical History: Unable to Obtain Medications and Allergies Home Medications Medication Instructions Recorded Confirmed Type Citalopram Hydrobromide [CeleXA] 20 mg PO DAILY 05/20/16 06/12/18 History Lisinopril [Zestril] 5 mg PO DAILY 05/20/16 06/12/18 History Atorvastatin [Lipitor] 40 mg PO HS 06/12/18 06/12/18 History HYDROcodone/APAP 5-325MG [[place] 1 tab PO Q4HR PRN 06/12/18 06/12/18 History 5-325] Metoprolol Tartrate [Lopressor] 12.5 mg PO DAILY 06/12/18 06/12/18 History Pantoprazole Sodium [Protonix] 40 mg PO DAILY 06/12/18 06/12/18 History QUEtiapine [SEROquel] 25 mg PO HS 06/12/18 06/12/18 History levETIRAcetam [Keppra] 250 mg PO Q12HR 06/12/18 06/12/18 History Allergies Allergy/AdvReac Type Severity Reaction Status Date / Time No Known Allergies Allergy Verified 06/12/18 10:58 Physical Examination Osteopathic Statement: *. No significant issues noted on an osteopathic structural exam other than those noted in the History and Physical/Consult. - Hip left Gait: other (she is unable to mobilize out of bed. She has significant pain at her left hip and groin with any sort of motion at her left hip. Her leg is shortened and externally rotated on the left. Her thigh and calf are soft nontender. She has sustained dorsal flexion plantarflexion and EHL intact at her left lower extremity. She has negative Homans. Her upper extremities have good active and passive range of motion. Her abdomen soft nontender. Chest has good excursion deep to patient agitation. Her neck is good active and passive range of motion and is nontender.) Results - Labs Labs: Abnormal Lab Results - Last 24 Hours (Table) 06/12/18 06/12/18 06/12/18 Range/Units 11:30 11:30 11:35 APTT 21.3 L (22.0-30.0) sec BUN 19 H (7-17) mg/dL Glucose 114 H (74-99) mg/dL POC Glucose (mg/dL) 107 H (75-99) mg/dL Urine Protein (Negative) Ur Leukocyte Esterase (Negative) Urine WBC (0-5) /hpf Urine Bacteria (None) /hpf Urine Mucus (None) /hpf 06/12/18 Range/Units 12:35 APTT (22.0-30.0) sec BUN (7-17) mg/dL Glucose (74-99) mg/dL POC Glucose (mg/dL) (75-99) mg/dL Urine Protein Trace H (Negative) Ur Leukocyte Esterase Large H (Negative) Urine WBC 22 H (0-5) /hpf Urine Bacteria Rare H (None) /hpf Urine Mucus Rare H (None) /hpf H & H 06/12/18 Range/Units 11:30 Hgb 13.7 (11.4-16.0) gm/dL Hct 42.2 (34.0-46.0) % Coagulation 06/12/18 Range/Units 11:30 INR 1.0 (<1.2) Result Diagrams: 06/12/18 11:30 06/12/18 11:30 - Diagnostic results Hip x-ray: report reviewed, image reviewed (x-rays of her left hip and pelvis show significant osteopenia. She has a femoral neck fracture with a relation and displacement. There is shortening.) Assessment and Plan Assessment: left hip femoral neck fracture, acute status post fall Dementia Limited ambulator Plan: left hip femoral neck fracture, acute, displaced status post fall inability to ambulate due to femoral neck fracture Dementia The patient has an acute femoral neck fracture with displacement. She is not able to mobilize due to her fracture. The fracture occurred due to her fall. She is somewhat of a poor historian and much of her history is taken per her ch art. In order to help the patient mobilize and to get out of bed she will require surgical intervention. Her best surgical option would be to perform a left hip hemiarthroplasty. This would give her chance of starting to mobilize as soon as possible and healing from her injury. I tried to discuss this with the patient at bedside. I discussed the nature of her injury and the treatment options. We discussed conservative treatment and we discussed surgical intervention. She seemed to understand that surgical intervention was necessary for her to mobilize. She will need medical clearance for surgical intervention and medicine has been counseled for her. It is okay for her to eat today but she will be nothing by mouth after midnight and we'll plan for left hip hemiarthroplasty tomorrow on . Time with Patient: Greater than 30
--- NOTE | 2018-06-12 17:44 | CONS ---
CONSULTATION CHIEF COMPLAINT: [id number] white female with history of diabetes, dementia, dyslipidemia, presents after a fall. She has got a left hip fracture. She lives home by herself. She is a poor historian. Fourteen-point review of systems negative except for confusion, as mentioned above. Vital signs reviewed. Blood pressure high with 160s to 170s over 71 to 80, pulse 74, respiratory rate 16 to 18, temperature 97.5. HOME MEDICATIONS: List includes: 1. Celexa 20 mg daily. 2. Zestril 5 mg daily. 3. Lipitor 40 mg daily. 4. [place] 5/325 q.4 p.r.n. 5. Lopressor 12.5 daily. 6. Protonix 40 mg daily. 7. Seroquel 25 daily. 8. Keppra [address]-T changes. CARDIOVASCULAR: S1, S2. Regular rate and rhythm. PSYCH: Normal mood and affect. NEUROLOGIC: Cranial nerves are grossly intact. SKIN: No rashes. MUSCULOSKELETAL: Tenderness to palpation on the left lateral greater trochanter. Pain in her right forearm. ABDOMEN: Soft. LUNGS: Clear. ALLERGIES: NEGATIVE. PAST MEDICAL HISTORY: 1. Dementia. 2. Diabetes mellitus. 3. Hypertension. 4. Dyslipidemia. 5. Syncope. PRIOR SURGERIES: 1. Bariatric. 2. Cholecystectomy. 3. Hysterectomy. 4. Tonsillectomy. SOCIAL HISTORY: Former smoker. No alcohol. No illicit drugs. FAMILY HISTORY: Father with diabetes mellitus. Mother with myocardial infarction. ASSESSMENT: 1. Fall with left hip fracture. 2. History of hypertension. 3. Diabetes mellitus. 4. Rule out urinary tract infection. Due to a normal EKG she will probably be cleared for surgery if she needs it. Otherwise continue PT and OT as recommended by Orthopedic Surgery. Will renew home medications at this time. MMODL / IJN: [id number] /
[2018-06-12] MEDS: QUEtiapine 25 MG TAB PO SCH (21:07)
[2018-06-12] MEDS: ATORVASTATIN 40 MG TAB PO SCH (21:07)
[2018-06-12] MEDS: levETIRAcetam 250 MG TAB PO SCH (21:07)
[2018-06-13] MEDS: MORPHINE SULFATE 4 MG/ML SYRINGE IV PRN ×2 (05:16→14:14)
[2018-06-13] MEDS: levETIRAcetam 250 MG TAB PO SCH ×2 (07:54→21:43)
[2018-06-13] MEDS: LISINOPRIL 5 MG TAB PO SCH (07:55)
[2018-06-13] MEDS: METOPROLOL TARTRATE 12.5 MG TAB PO SCH (07:55)
[2018-06-13] MEDS ORDERED: ceFAZolin IN SWFI 2 GM/20 ML SYRINGE IVP ONE ×2 (08:00→09:45)
[2018-06-13] MEDS: CITALOPRAM HYDROBROMIDE 20 MG TAB PO SCH (08:07)
[2018-06-13] MEDS ORDERED: LACTATED RINGERS 1,000 ML IV ONE ×2 (08:39→11:00)
[2018-06-13] MEDS ORDERED: PANTOPRAZOLE 40 MG/10 ML VIAL IV SCH (09:00)
[2018-06-13] MEDS ORDERED: PANTOPRAZOLE 40 MG TABLET PO SCH (09:00)
[2018-06-13] MEDS ORDERED: PHENYLEPHRINE-0.9% NACL SYG 1 MG/10 ML SYRINGE ONE (09:33)
[2018-06-13] MEDS ORDERED: fentaNYL (PF) 50 MCG/ML 2 ML AMP ONE (09:33)
[2018-06-13] MEDS ORDERED: ePHEDrine SULFATE/0.9% NACL/PF 50 MG/5 ML SYRINGE IV ONE (09:33)
[2018-06-13] MEDS ORDERED: MIDAZOLAM 2 MG/2 ML VIAL ONE (09:33)
[2018-06-13] MEDS ORDERED: ONDANSETRON 4 MG/2 ML VIAL ONE (09:33)
[2018-06-13] MEDS ORDERED: KETAMINE 10 MG/ML 20 ML VIAL ONE (09:33)
[2018-06-13] MEDS ORDERED: ceFAZolin 1,000 MG in SODIUM CHLORIDE 0.9% 1,000 ML IRRIGATION ONE (10:16)
[2018-06-13] MEDS ORDERED: HYDROmorphone 0.5 MG/0.5 ML SYRINGE IVP PRN (11:07)
[2018-06-13] MEDS ORDERED: MAGNESIUM HYDROXIDE 2,400 MG/10 ML CUP PO PRN (11:07)
[2018-06-13] MEDS ORDERED: NALOXONE 0.4 MG/ML 1 ML VIAL IV PRN (11:08)
--- NOTE | 2018-06-13 11:17 | P.OP ---
Date of Procedure: 06/13/18 Preoperative Diagnosis: Left hip acute displaced femoral neck fracture due to fall Osteoporosis Postoperative Diagnosis: Same Anesthesia: spinal Pathology: other (Left femoral head to pathology) Condition: stable Disposition: PACU Description of Procedure: Preoperative diagnosis: Femoral neck fracture, left acute displaced due to fall, osteoporosis Postoperative diagnosis: Same Procedure: Left Hip hemiarthroplasty Surgeon: Dr. Chante Barnes.: Bee Ornelas who is present that the entire the case persistence during positioning dissection exposure placement of hardware and closure Anesthesia: Spinal per Dr. Stinson Estimated blood loss: Jenny 100 mL Components implanted: [employer] unipolar fracture stem size 5 with a standard neck and head Disposition: To recovery room in good stable condition Operative indications The patient sustained a injury and suffered a femoral neck fracture which was displaced and angulated. She has a history of some dementia and says that she fell but does not remember the fall itself. It was unwitnessed. She had severe pain at her left hip was unable to get up and presented to the emergency room. She is found to have a displaced femoral neck fracture and we're consult in this regard. We were involved in the case in regard to his hip fracture. After evaluation it was determined that they would be a candidate for hip hemiarthroplasty via surgical intervention. This would give them the best chance of mobilization and ambulation. We discussed the range of treatment options from conservative to surgical. They elected proceed with surgical intervention. We answered their questions to the best of our ability healing which they can understand. They signed an informed consent. Operative summary After obtaining informed consent evaluation by anesthesia, preoperative evaluation and clearance for medical service, the patient was identified and prepped Godoy area and the surgical site was marked on the left. There brought to the operating room where the given appropriate anesthesia by the anesthesia department in standard fashion without any complications. Once the anesthesia was established we were able to position the patient. There placed in a lateral decubitus position with the operative side up on the left being careful to pad any bony prominences and pressure points and place a excellent roll appropriately. The airway and C-spine was monitored continuously. Once patient was well positioned the left lower extremity was prepped and draped in normal standard sterile fashion. An appropriate keystone protocol and timeout was completed and were able to proceed with surgery. A curvilinear incision was established over the greater trochanter. Dissection was taken down to the tensor fascia vaughn which was split in line with its fibers and extended proximally into the gluteal fibers. A Charnley retractor was established. The trochanteric bursa was inflamed and removed. I was able to then dissect down off the posterior aspect of the greater trochanter taking the piriformis tendon and the posterior capsule in one full-thickness flap and tacking it with suture. This expose the fracture at the femoral neck which was easily identified. A guide was used to establish the appropriate femoral neck cut and a bone- cutting saw was used to establish the femoral neck cut and good alignment and good position. All the bony fragments were removed. I was then able to use a corkscrew device to remove the femoral head from the acetabulum. Any loose fragments in the acetabulum were removed. The femoral head was measured for the appropriate size implant and then passed off for pathology. Appropriate retractors were placed and I established a lateral box cut chisel. I then used a starting reamer to establish the femoral canal area I then sequentially reamed with sequential reamers until we had good bony chatter distally. With this we then started to broach with sequential broaches to the appropriate sized to we had good fit and fill to #5 broach. There is no evidence any fracture in the possible femur. With the appropriate size broach well seated and stable I placed the trial neck and head. A gentle reduction was performed to get good reduction. The hip was taken through a good range of motion and found to be stable in the position of sleep and through a range of motion. It had a good shuck test. We were able to then dislocate the trial prosthesis. The broach was found to remain stable. It was then removed. The wound was copiously irrigated and suctioned dry with pulsatile lavage. The appropriate size femoral stem was chosen and positioned and placed in good alignment and good position with excellent fit and fill seated appropriately over the calcar. It was checked and found to be stable. The trunnion was cleaned and dried the femoral head was then positioned over the femoral neck malleted in position checked and found to be stable. The hip prosthesis was then gently reduced back into the acetabulum and found to have excellent position and excellent stability and excellent range of motion with stability. There is no evidence of dislocation or fracture. The wound was copiously irrigated and suctioned dry. We are able to proceed with closure. The piriformis and posterior capsule were reapproximated to the posterior aspect of the greater trochanter with transosseous stitches. The wound was irrigated and suctioned dry. The fascia was closed with #2 Quill for watertight closure. Subcutaneous tissue was irrigated and suctioned dry. Subcu tissues closed with 2-0 Vicryl subcuticular tissue was closed with 30 Quill. Wound is clean and dried and dressed with Dermabond Adaptic 4 x 4's ABDs and tape. Drapes were broken down, the hip was held in stable position, and an abduction pillow was placed. The patient was then transferred back to their hospital bed being careful to maintain the hip and C-spine alignment and airway. Once stable to patient was transferred back to the postanesthesia care unit to be readmitted for pain control and DVT prophylaxis medical management and monitoring and mobilization we will continue follow patient closely throughout their postoperative course.
[2018-06-13] MEDS: SODIUM CHLORIDE 0.9% 1,000 ML IV SCH ×2 (12:46)
[2018-06-13 13:05] LABS: Basophils % (A) 0 %; Eosinophils # (A) 0.1 k/uL (0-0.7); Eosinophils % (A) 2 %; HCT 36.6 % (34.0-46.0); HGB 11.8 gm/dL (11.4-16.0); Lymphocytes # (A) 0.8 k/uL (1.0-4.8); Lymphocytes % (A) 11 %; MCH 31.6 pg (25.0-35.0); MCHC 32.1 g/dL (31.0-37.0); MCV 98.6 fL (80.0-100.0); Mean Platelet Volume 6.3; Monocytes # (A) 0.3 k/uL (0-1.0); Monocytes % (A) 5 %; Neutrophils # (A) 5.8 k/uL (1.3-7.7); Neutrophils % (A) 82 %; Platelet Count 143 k/uL (150-450); RBC 3.72 m/uL (3.80-5.40); RDW 13.5 % (11.5-15.5); WBC 7.1 k/uL (3.8-10.6)
--- NOTE | 2018-06-13 13:07 | XR ---
Limited left hip HISTORY: Postop Single frontal view of the left hip Patient is status post left hip arthroplasty. There is anatomic alignment. Lucency in the soft tissue s is compatible with postop state. IMPRESSION: Orthopedic follow-up.
[2018-06-13] MEDS: ceFAZolin IN SWFI 2 GM/20 ML SYRINGE IVP SCH ×2 (15:41→23:53)
[2018-06-13] MEDS: HYDROcodone/APAP 5-325MG 1 EACH TAB PO PRN (21:42)
[2018-06-13] MEDS: ASPIRIN 325 MG TAB PO SCH (21:43)
[2018-06-13] MEDS: QUEtiapine 25 MG TAB PO SCH (21:43)
[2018-06-13] MEDS: ATORVASTATIN 40 MG TAB PO SCH (21:43)
[2018-06-14] MEDS: SODIUM CHLORIDE 0.9% 1,000 ML IV SCH ×4 (02:31→15:23)
[2018-06-14] MEDS: HYDROcodone/APAP 5-325MG 1 EACH TAB PO PRN ×3 (03:07→21:00)
[2018-06-14] MEDS: MORPHINE SULFATE 4 MG/ML SYRINGE IV PRN (06:18)
[2018-06-14] MEDS: ASPIRIN 325 MG TAB PO SCH ×2 (07:56→21:00)
[2018-06-14] MEDS: SENNOSIDES-DOCUSATE SODIUM 1 EACH TAB PO SCH (07:56)
[2018-06-14] MEDS: CITALOPRAM HYDROBROMIDE 20 MG TAB PO SCH (08:05)
[2018-06-14] MEDS: METOPROLOL TARTRATE 12.5 MG TAB PO SCH (08:05)
[2018-06-14] MEDS: LISINOPRIL 5 MG TAB PO SCH (08:06)
[2018-06-14] MEDS: PANTOPRAZOLE 40 MG TABLET PO SCH (08:06)
[2018-06-14] MEDS: levETIRAcetam 250 MG TAB PO SCH ×2 (08:09→21:01)
--- NOTE | 2018-06-14 11:50 | P.PN ---
Subjective Progress Note Date: 06/14/18 Principal diagnosis: Femoral neck fracture left hip. Status post hemiarthroplasty left hip. This is a 77-year-old female who is status post hemiarthroplasty of the left hip for femoral neck fracture. She is stable from an orthopedic standpoint. Vital signs are stable. Objective - Vital Signs Vital signs: Vital Signs Temp 98.0 F 06/14/18 01:20 Pulse 79 06/14/18 01:20 Resp 20 06/14/18 01:20 BP 114/70 06/14/18 01:20 Pulse Ox 99 06/14/18 01:20 Intake & Output 06/13/18 06/14/18 06/14/18 18:59 06:59 18:59 Intake Total 1251 937.5 Output Total 500 Balance 751 937.5 Intake: IV 1251 Intake, IV Titration 937.5 Amount Sodium Chloride 0.9% 1, 937.5 000 ml @ 75 mls/hr IV . [id number] [facility] Rx#:[id number] Output: Urine 350 Estimated Blood Loss 150 Other: Voiding Method Indwelling Catheter Indwelling Catheter Indwelling Catheter - Exam This is a pleasant 77-year-old female in no acute distress. She is resting quietly but is arousable. She continues to have her baseline confusion. Exam of the left hip reveals that her dressing is clean, dry and intact. She will wi ggle toes on command. Pedal pulses +2/4. Neurovascular status to the lower extremity is intact. - Labs CBC & Chem 7: 06/13/18 12:47 06/12/18 11:30 Labs: Abnormal Lab Results - Last 24 Hours (Table) 06/13/18 Range/Units 12:47 RBC 3.72 L (3.80-5.40) m/uL Plt Count 143 L (150-450) k/uL Lymphocytes # 0.8 L (1.0-4.8) k/uL Microbiology - Last 24 Hours (Table) 06/12/18 12:35 Urine Culture - Final Urine,Voided Assessment and Plan (1) Fall Current Visit: Yes Status: Acute Code(s): W19.XXXA - UNSPECIFIED FALL, INITIAL ENCOUNTER SNOMED Code(s): 1148552 (2) Hip fracture, left Current Visit: Yes Status: Acute Code(s): S72.002A - FRACTURE OF UNSP PART OF NECK OF LEFT FEMUR, INIT SNOMED Code(s): 313536202 Plan: The clinical findings are discussed with the patient and nursing staff. We anticipate inpatient rehab tomorrow versus Sunday and transition to long-term care.
[2018-06-14] MEDS ORDERED: SODIUM CHLORIDE 0.9% 500 ML 500 ML IV ONE (17:45)
[2018-06-14] MEDS: ATORVASTATIN 40 MG TAB PO SCH (21:00)
[2018-06-14] MEDS: QUEtiapine 25 MG TAB PO SCH (21:00)
[2018-06-15] MEDS: MORPHINE SULFATE 4 MG/ML SYRINGE IV PRN (05:13)
[2018-06-15] MEDS: levETIRAcetam 250 MG TAB PO SCH ×2 (09:05→21:59)
[2018-06-15] MEDS: PANTOPRAZOLE 40 MG TABLET PO SCH (09:05)
[2018-06-15] MEDS: ASPIRIN 325 MG TAB PO SCH ×2 (09:05→21:59)
[2018-06-15] MEDS: CITALOPRAM HYDROBROMIDE 20 MG TAB PO SCH (09:05)
[2018-06-15] MEDS: METOPROLOL TARTRATE 12.5 MG TAB PO SCH (09:05)
[2018-06-15] MEDS: SODIUM CHLORIDE 0.9% 1,000 ML IV SCH ×4 (09:05→16:00)
[2018-06-15] MEDS: SENNOSIDES-DOCUSATE SODIUM 1 EACH TAB PO SCH (09:05)
[2018-06-15] MEDS: LISINOPRIL 5 MG TAB PO SCH (09:05)
--- NOTE | 2018-06-15 09:53 | P.DS ---
Providers Date of admission: 06/12/18 13:05 Expected date of discharge: 06/15/18 Attending physician: Mohamud Sharif Consults: 06/12/18 13:09 Consult Physician Routine Consulting Provider: Vincent Rincon Consult Reason/Comments: medicine consult Do you want consulting provider notified?: Yes Primary care physician: Remy Castle - Discharge Diagnosis(es) (1) Fall Current Visit: Yes Status: Acute (2) Hip fracture, left Current Visit: Yes Status: Acute Hospital Course: This is a 77-year-old female with a past medical history significant for dementia who sustained a left hip fracture after a fall, but this was unwitnessed. The patient presented for evaluation in the emergency room and was admitted for further management. After discussion and consideration. the patient and her family elect to proceed with left hip hemiarthroplasty. The patient is seen preoperatively by Dr. Sharif and medically cleared for surgery by internal medicine. Patient is admitted to [facility] on 06/12/2018 and left hip hemiarthroplasty is performed on 06/13/2018. The procedure is performed without complication or sequelae. The patient is doing well postoperatively. Labs and vital signs are stable on day of discharge. On day of discharge patient's hip incision is healing well. There is minimal erythema. There is no drainage noted at this time. There is minimal soft tissue swelling to the hip and thigh. Patient has full foot and ankle motion without difficulty or pain. Calf is soft and nontender to palpation. Neurovascular status to the left lower extremity is intact. Patient is discharged to rehab in good condition. Please see med rec for accurate list of home medications. Patient Condition at Discharge: Fair Plan - Discharge Summary Discharge Rx Participant: No New Discharge Prescriptions: New Aspirin 325 mg PO BID #60 tab HYDROcodone/APAP 5-325MG [[place] 5-325] 1 - 2 tab PO Q6HR PRN #56 tab PRN Reason: Pain Sennosides [Senokot] 1 tab PO BID #60 tablet No Action Lisinopril [Zestril] 5 mg PO DAILY Citalopram Hydrobromide [CeleXA] 20 mg PO DAILY levETIRAcetam [Keppra] 250 mg PO Q12HR QUEtiapine [SEROquel] 25 mg PO HS Metoprolol Tartrate [Lopressor] 12.5 mg PO DAILY HYDROcodone/APAP 5-325MG [[place] 5-325] 1 tab PO Q4HR PRN PRN Reason: Pain Atorvastatin [Lipitor] 40 mg PO HS Pantoprazole Sodium [Protonix] 40 mg PO DAILY Discharge Medication List Citalopram Hydrobromide [CeleXA] 20 mg PO DAILY 05/20/16 [History] Lisinopril [Zestril] 5 mg PO DAILY 05/20/16 [History] Atorvastatin [Lipitor] 40 mg PO HS 06/12/18 [History] HYDROcodone/APAP 5-325MG [[place] 5-325] 1 tab PO Q4HR PRN 06/12/18 [History] Metoprolol Tartrate [Lopressor] 12.5 mg PO DAILY 06/12/18 [History] Pantoprazole Sodium [Protonix] 40 mg PO DAILY 06/12/18 [History] QUEtiapine [SEROquel] 25 mg PO HS 06/12/18 [History] levETIRAcetam [Keppra] 250 mg PO Q12HR 06/12/18 [History] Aspirin 325 mg PO BID #60 tab 06/15/18 [Rx] HYDROcodone/APAP 5-325MG [[place] 5-325] 1 - 2 tab PO Q6HR PRN #56 tab 06/15/18 [Rx] Sennosides [Senokot] 1 tab PO BID #60 tablet 06/15/18 [Rx] Follow up Appointment(s)/Referral(s): Mohamud Sharif DO [Doctor of Osteopathic Medicine] - 2 Weeks Remy Castle DO [Primary Care Provider] - 1-2 days [facility] [address], [NON-STAFF] - As Needed Activity/Diet/Wound Care/Special Instructions: Weightbearing as tolerated with walker. May shower after 2 days if no drainage from the incision. Continue use if abductor pillow. Follow[facility]up with [facility] in 2 weeks and please call with any questions or concerns, Discharge Disposition: TRANSFER TO SNF/ECF
[2018-06-15 11:02] LABS: Basophils % (A) 0 %; Eosinophils # (A) 0.3 k/uL (0-0.7); Eosinophils % (A) 4 %; HCT 31.2 % (34.0-46.0); HGB 10.5 gm/dL (11.4-16.0); Lymphocytes # (A) 0.6 k/uL (1.0-4.8); Lymphocytes % (A) 9 %; MCH 32.5 pg (25.0-35.0); MCHC 33.5 g/dL (31.0-37.0); Mean Platelet Volume 6.4; Monocytes # (A) 0.3 k/uL (0-1.0); Monocytes % (A) 5 %; Neutrophils # (A) 5.1 k/uL (1.3-7.7); Neutrophils % (A) 82 %; Platelet Count 131 k/uL (150-450); RBC 3.22 m/uL (3.80-5.40); RDW 13.1 % (11.5-15.5); WBC 6.3 k/uL (3.8-10.6)
[2018-06-15] MEDS: HYDROcodone/APAP 5-325MG 1 EACH TAB PO PRN (18:15)
--- NOTE | 2018-06-15 20:21 | PN ---
PROGRESS NOTE SUBJECTIVE: 77-year-old white female, status post hip fracture surgery awaiting rehab placement. She is low dehydrated. We will start IV fluid normal saline overnight due to and possible urinary retention. Godoy catheter may need to be placed back in. Cardiovascular S1-S2. Lungs clear. GI soft. Hematology negative Homans. Psych: Flat mood and affect. ASSESSMENT: 1. Hip fracture. 2. Possible dehydration. Continue normal saline. Possible Godoy catheter. Follow up in the next 24-48 hours for discharge to [facility]. MMYRNL / IJN: [id number] /
[2018-06-15] MEDS: ATORVASTATIN 40 MG TAB PO SCH (21:59)
[2018-06-15] MEDS: QUEtiapine 25 MG TAB PO SCH (21:59)
[2018-06-16 07:24] LABS: Basophils % (A) 0 %; Eosinophils # (A) 0.5 k/uL (0-0.7); Eosinophils % (A) 9 %; HGB 9.6 gm/dL (11.4-16.0); Lymphocytes # (A) 0.7 k/uL (1.0-4.8); Lymphocytes % (A) 14 %; MCH 32.3 pg (25.0-35.0); MCHC 32.9 g/dL (31.0-37.0); MCV 98.1 fL (80.0-100.0); Mean Platelet Volume 6.8; Monocytes # (A) 0.3 k/uL (0-1.0); Monocytes % (A) 6 %; Neutrophils # (A) 3.8 k/uL (1.3-7.7); Neutrophils % (A) 70 %; Platelet Count 153 k/uL (150-450); RBC 2.96 m/uL (3.80-5.40); WBC 5.5 k/uL (3.8-10.6)
[2018-06-16 07:40] LABS: ALT 30 U/L (9-52); AST 24 U/L (14-36); Albumin 2.2 g/dL (3.5-5.0); Alkaline Phosphatase 57 U/L (38-126); Anion Gap 1 mmol/L; Blood Urea Nitrogen 8 mg/dL (7-17); Carbon Dioxide 32 mmol/L (22-30); Chloride 107 mmol/L (98-107); Glucose 90 mg/dL (74-99); Potassium 3.6 mmol/L (3.5-5.1); Sodium 140 mmol/L (137-145); Total Bilirubin 0.8 mg/dL (0.2-1.3); Total Protein 4.4 g/dL (6.3-8.2)
[2018-06-16] MEDS: CITALOPRAM HYDROBROMIDE 20 MG TAB PO SCH (07:56)
[2018-06-16] MEDS: PANTOPRAZOLE 40 MG TABLET PO SCH (07:56)
[2018-06-16] MEDS: SODIUM CHLORIDE 0.9% 1,000 ML IV SCH ×4 (07:56→20:40)
[2018-06-16] MEDS: levETIRAcetam 250 MG TAB PO SCH ×2 (07:56→20:34)
[2018-06-16] MEDS: ASPIRIN 325 MG TAB PO SCH ×2 (07:56→20:34)
[2018-06-16] MEDS: METOPROLOL TARTRATE 12.5 MG TAB PO SCH (07:56)
[2018-06-16] MEDS: LISINOPRIL 5 MG TAB PO SCH (07:56)
[2018-06-16] MEDS: SENNOSIDES-DOCUSATE SODIUM 1 EACH TAB PO SCH (07:56)
[2018-06-16] MEDS: HYDROcodone/APAP 5-325MG 1 EACH TAB PO PRN (08:07)
--- NOTE | 2018-06-16 09:25 | P.PN ---
Subjective Progress Note Date: 06/16/18 This is a 77-year-old female who is status post left hip hemiarthroplasty. This is postoperative day #3. Patient is seen and evaluated at bedside. The patient's daughter is at bedside as well. Patient's daughter states that her mother is more awake today. Patient states that the left hip is sore, but she denies any new complaints today. Objective - Vital Signs Vital signs: Vital Signs Temp 98.1 F 06/16/18 07:39 Pulse 85 06/16/18 07:39 Resp 18 06/16/18 07:39 BP 138/85 06/16/18 07:39 Pulse Ox 96 06/16/18 07:39 Intake & Output 06/15/18 06/16/18 06/16/18 18:59 06:59 18:59 Intake Total 540 1580 240 Output Total 630 500 Balance -90 1080 240 Intake: Intake, IV Titration 300 1280 Amount Sodium Chloride 0.9% 1, 300 000 ml @ 75 mls/hr IV . [id number] [facility] Rx#:[id number] Sodium Chloride 0.9% 1, 1280 000 ml @ 80 mls/hr IV . [id number] [facility] Rx#:[id number] Oral 240 300 240 Output: Urine 630 500 Uretheral (Godyo) 500 Other: Voiding Method Diaper Diaper Incontinent Incontinent # Voids 0 # Bowel Movements 0 - Exam Vital signs are stable. Patient is in no acute distress and is alert and oriented 3. Abductor pillow in place. Calf is soft and nontender to palpation. Dressing is clean, dry, and intact. Patient has full foot and ankle motion without pain or difficulty. Neurovascular status and circulatory status are intact. - Labs CBC & Chem 7: 06/16/18 07:01 06/16/18 07:01 Labs: Abnormal Lab Results - Last 24 Hours (Table) 06/15/18 06/16/18 06/16/18 Range/Units 10:38 07:01 07:01 RBC 3.22 L 2.96 L (3.80-5.40) m/uL Hgb 10.5 L 9.6 L (11.4-16.0) gm/dL Hct 31.2 L 29.0 L (34.0-46.0) % Plt Count 131 L (150-450) k/uL Lymphocytes # 0.6 L 0.7 L (1.0-4.8) k/uL Carbon Dioxide 32 H (22-30) mmol/L Creatinine 0.50 L (0.52-1.04) mg/dL Calcium 8.0 L (8.4-10.2) mg/dL Total Protein 4.4 L (6.3-8.2) g/dL Albumin 2.2 L (3.5-5.0) g/dL Assessment and Plan (1) Fall Current Visit: Yes Status: Acute Code(s): W19.XXXA - UNSPECIFIED FALL, INITIAL ENCOUNTER SNOMED Code(s): 8000151 (2) Hip fracture, left Current Visit: Yes Status: Acute Code(s): S72.002A - FRACTURE OF UNSP PART OF NECK OF LEFT FEMUR, INIT SNOMED Code(s): 756232821 Plan: Continue routine postop care and pain control. Continue hip precautions with abductor pillow. Continue anticoagulation with ASA. Weightbearing as tolerated with a walker. Daily dressing changes. Appreciate input from medicine. [facility].
[2018-06-16] MEDS: ATORVASTATIN 40 MG TAB PO SCH (20:34)
[2018-06-16] MEDS: MORPHINE SULFATE 4 MG/ML SYRINGE IV PRN (20:34)
[2018-06-16] MEDS: QUEtiapine 25 MG TAB PO SCH (20:34)
--- NOTE | 2018-06-16 22:40 | P.PN ---
Subjective Progress Note Date: 06/16/18 (Patient seen eval examined while covering for Dr. Vincent Rincon) Principal diagnosis: Left Hip fracture, hypertension hypertensive cardiovascular disease, mood disorder depression, dyslipidemia, GERD and dehydration 06/16/2018, patient seen eval examined during the rounds clinically patient has been doing well awake and alert breathing comfortably no obvious distress is present is being treated with continuation of home medications tolerating very well patient is being planned for placement in extended care facility for short-term rehab Objective - Vital Signs Vital signs: Vital Signs Temp 98.0 F 06/16/18 19:50 Pulse 74 06/16/18 19:50 Resp 15 06/16/18 19:50 BP 160/65 06/16/18 19:50 Pulse Ox 97 06/16/18 19:50 Intake & Output 06/16/18 06/16/18 06/17/18 06:59 18:59 06:59 Intake Total 1580 300 225 Output Total 500 500 Balance 1080 -200 225 Intake: Intake, IV Titration 1280 225 Amount Sodium Chloride 0.9% 1, 225 000 ml @ 75 mls/hr IV . [id number] [facility] Rx#:[id number] Sodium Chloride 0.9% 1, 1280 000 ml @ 80 mls/hr IV . [id number] [facility] Rx#:[id number] Oral 300 300 Output: Urine 500 500 Other: Voiding Method Diaper Indwelling Catheter Incontinent # Bowel Movements 0 - Constitutional General appearance: Present: cooperative, disheveled - EENT Eyes: Present: PERRLA, normal appearance Ears: bilateral: normal - Neck Neck: Present: normal ROM Carotids: bilateral: upstroke normal - Respiratory Respiratory: bilateral: CTA - Cardiovascular Rhythm: regular Heart sounds: normal: S1, S2 - Gastrointestinal General gastrointestinal: Present: decreased bowel sounds, distended, soft - Integumentary Integumentary: Present: normal turgor - Neurologic Neurologic: Present: CNII-XII intact - Musculoskeletal Musculoskeletal: Present: gait normal, generalized weakness, strength equal bilaterally - Labs CBC & Chem 7: 06/16/18 07:01 06/16/18 07:01 Labs: Abnormal Lab Results - Last 24 Hours (Table) 06/16/18 06/16/18 Range/Units 07:01 07:01 RBC 2.96 L (3.80-5.40) m/uL Hgb 9.6 L (11.4-16.0) gm/dL Hct 29.0 L (34.0-46.0) % Lymphocytes # 0.7 L (1.0-4.8) k/uL Carbon Dioxide 32 H (22-30) mmol/L Creatinine 0.50 L (0.52-1.04) mg/dL Calcium 8.0 L (8.4-10.2) mg/dL Total Protein 4.4 L (6.3-8.2) g/dL Albumin 2.2 L (3.5-5.0) g/dL Assessment and Plan Assessment: Left hip fracture related to fall with displaced femoral neck postop day #3, status post left hip hemiarthroplasty Osteoporosis Hypertension hypertensive cardiovascular disease Mood disorder depression Plan: Continue current medications Physical therapy as per recommendation Increase activity as tolerated
[2018-06-17] MEDS: SODIUM CHLORIDE 0.9% 1,000 ML IV SCH ×3 (07:34→07:48)
[2018-06-17] MEDS: ASPIRIN 325 MG TAB PO SCH (07:42)
[2018-06-17] MEDS: PANTOPRAZOLE 40 MG TABLET PO SCH (07:42)
[2018-06-17] MEDS: SENNOSIDES-DOCUSATE SODIUM 1 EACH TAB PO SCH (07:42)
[2018-06-17] MEDS: CITALOPRAM HYDROBROMIDE 20 MG TAB PO SCH (07:42)
[2018-06-17] MEDS: LISINOPRIL 5 MG TAB PO SCH (07:43)
[2018-06-17] MEDS: levETIRAcetam 250 MG TAB PO SCH (07:43)
[2018-06-17] MEDS: METOPROLOL TARTRATE 12.5 MG TAB PO SCH (07:43)
[2018-06-17 08:11] VITALS: BP 134/73; PULSE 92; RESP 12; TEMP 99.2
--- NOTE | 2018-06-17 08:55 | P.PN ---
Progress Note - Text Progress Note Date: 06/17/18 Patient is a very pleasant 77-year-old female who is seen and examined at bedside for follow-up evaluation for her left hip after sustaining a left femoral neck fracture status post fall. She is status post left hip hemiarthroplasty performed on 06/12/2018. Patient states she does continue to have some pain at the left hip. She does have a history of dementia but answers questions appropriately. She states she has remained in bed and has not increase ambulation with physical therapy. She is planning for discharge to rehabilitation facility as early as today, 06/17/2018, if she is able to obtain approval and a bed is available. She has no new complaints the bedside. She s tates she is looking forward to discharge to rehab. Her Godoy catheter continues to be intact. Physical Exam Hip Hemiarthroplasty: Status post surgical day number 5 Patient is examined lying in bed Patient is awake, alert, and oriented 3 Vital signs stable Good chest excursion with deep inspiration and expiration Abdomen soft nontender No signs or symptoms of DVT; no calf pain Lower extremity cuffs in place bilaterally Abductor pillow intact Dressing of the left hip is clean, dry, and intact; no erythema, purulence, or signs of infection Mild pain with palpation over the surgical site Full range of motion of ankles bilaterally Dorsiflexion, plantarflexion, and extensor hallucis longus positive sustained bilaterally Neurovascularly intact bilateral lower extremities Capillary refill less than 2 seconds bilateral lower extremities Godoy catheter intact Assessment: Status post left hip hemiarthroplasty for left femoral neck fracture Status post fall Left hip pain History of dementia Plan: 1. Patient may continue to weight-bear as tolerated on the lower extremity; patient may work with physical therapy to increase mobility and ambulation; we discussed the importance of working with physical therapy to work on increasing mobility prior to her discharge as early as today 2. Continue pain control with [place] 5 mg/325 mg 3. Abductor pillow to remain in place at all times except while working with therapy 4. Medicine to continue following the patient for their other medical issues; we will plan for medicine to complete her medical record prior to discharge to rehabilitation facility at the time of discharge 5. Continue with with anticoagulation therapy with aspirin 325 mg 6. We'll continue to follow the patient; patient is clear for discharge today to a rehabilitation facility pending approval by insurance and bed availability; patient must also be cleared from a medical standpoint prior to discharge 7. Patient's Godoy catheter continues to be intact; we'll plan to have this catheter discontinued prior to discharge and less felt necessary by medicine 8. Patient can follow-up with Rashel Peter PA-C or Dr. Vincent Sharif at [facility] in 2-3 weeks following discharge
--- NOTE | 2018-06-17 13:34 | PN ---
PROGRESS NOTE SUBJECTIVE: This is a 77-year-old white female, status post hip fracture with replacement. The Godoy catheter is being pulled today. She will be sent up to [facility] on the [address]. Medications were reviewed with the patient. Urine culture is negative for any infection. Mental status is improved. She is up eating on the side of the bed. CARDIOVASCULAR: S1, S2. LUNGS: Clear. GI: Soft. HEMATOLOGY: Negative Homans. ASSESSMENT: 1. Status post hip fracture. 2. Dementia. 3. Hypertension. 4. Possible seizures. 5. Dyslipidemia. 6. Gastroesophageal reflux disease. Patient is stable for transfer to senior care today under Dr. Vincent Rincon's care up at [facility]. MMODL / IJN: [id number] /
== END 2018-06-17 15:10 | DRG 470 ==
LOC: EC 10:37 → 4SSUR 13:05
PROVIDERS: ADMIT Orthopaedic Surgery Orthopaedic Surgery of the Spine; ATTEND Orthopaedic Surgery Orthopaedic Surgery of the Spine
PROC: 0SRS01A Replacement of Left Hip Joint, Femoral Surface with Metal Synthetic Substitute, Uncemented, Open Approach (ICD-10-PCS; principal; 2018-06-13 07:30)
DX: S72.012A Unspecified intracapsular fracture of left femur, initial encounter for closed fracture (principal); E86.0 Dehydration; E11.9 Type 2 diabetes mellitus without complications; F03.90 Unspecified dementia, unspecified severity, without behavioral disturbance, psychotic disturbance, mood disturbance, and anxiety; I11.9 Hypertensive heart disease without heart failure; M79.631 Pain in right forearm; F32.9 Major depressive disorder, single episode, unspecified; K21.9 Gastro-esophageal reflux disease without esophagitis; M81.0 Age-related osteoporosis without current pathological fracture; M19.90 Unspecified osteoarthritis, unspecified site; E78.5 Hyperlipidemia, unspecified; Z79.899 Other long term (current) drug therapy; Z90.49 Acquired absence of other specified parts of digestive tract; Z90.710 Acquired absence of both cervix and uterus; Z98.84 Bariatric surgery status; Z86.73 Personal history of transient ischemic attack (TIA), and cerebral infarction without residual deficits; Z86.718 Personal history of other venous thrombosis and embolism; Z87.442 Personal history of urinary calculi; Z95.0 Presence of cardiac pacemaker; Z86.010 Personal history of colon polyps; Z87.891 Personal history of nicotine dependence; Z83.3 Family history of diabetes mellitus; Z82.49 Family history of ischemic heart disease and other diseases of the circulatory system; W01.0XXA Fall on same level from slipping, tripping and stumbling without subsequent striking against object, initial encounter; Y92.009 Unspecified place in unspecified non-institutional (private) residence as the place of occurrence of the external cause
CPT/HCPCS: 36415; 70450; 71045; 72125; 72170; 73501; 80053; 81001; 82550; 83735; 84484; 85025; 85610; 85730; 87086; 88305; 88311; 93005; 96374; 96375; 99285

== ENCOUNTER → 2018-07-02 | Outpatient (CLI) | payer MEDICARE ==
--- NOTE | 2018-07-02 10:43 | US ---
EXAMINATION TYPE: US venous doppler duplex LE BI DATE OF EXAM: 07/02/2018 10:25 AM COMPARISON: NONE CLINICAL HISTORY: M25.552 PAIN LT HIP,I80.9 PHLEBITIS THROMBOPHLEBITIS SITE. left hip replacement 2 w eeks ago, left leg pain SIDE PERFORMED: bilateral TECHNIQUE: The lower extremity deep venous system is examined utilizing real time linear array sonog sherly with graded compression, doppler sonography and color-flow sonography. VESSELS IMAGED: External Iliac Vein (EIV) Common Femoral Vein Deep Femoral Vein Greater Saphenous Vein * Femoral Vein Popliteal Vein Small Saphenous Vein * Proximal Calf Veins (* superficial vessels) Technical limitations, patient unable to abduct legs into adequate position for exam Right Leg: no evidence of DVT as visualized. Anechoic area right popliteal fossa = 4.5 x 1.2 x 2.5cm , Tabares's cyst Left Leg: no evidence of DVT as visualized IMPRESSION: 1. No diagnostic evidence of DVT. 2. There is a popliteal fossa cyst measuring 4.5 cm on the right.
== END | disposition home or self-care (01) ==
LOC: RADUSWWP 09:28
PROVIDERS: ATTEND Orthopaedic Surgery Orthopaedic Surgery of the Spine
DX: M71.21 Synovial cyst of popliteal space [Baker], right knee (principal)
CPT/HCPCS: 93970

== ENCOUNTER 2018-08-31 13:03 | Emergency (ER) | payer MEDICARE ==
[2018-08-31] MEDS ORDERED: MORPHINE SULFATE 4 MG/ML SYRINGE IVP STA ×2 (13:33→15:12)
[2018-08-31] MEDS ORDERED: LIDOCAINE 1% INJ 10MG/ML (20 ML MDV) SQ ONE (13:34)
[2018-08-31] MEDS ORDERED: DIPH,PERTUS(ACELL)TETVAC-LF 0.5 ML VIAL IM ONE (13:34)
--- NOTE | 2018-08-31 14:24 | CT ---
EXAMINATION TYPE: CT brain cspine wo con DATE OF EXAM: 08/31/2018 COMPARISON: CT brain and cervical spine June 12, 2018. HISTORY: fall, head lac with headache and neck pain. CT DLP: 1430.8 mGycm. Automated Exposure Control for Dose Reduction was Utilized. TECHNIQUE: CT scan of the head and cervical spine are performed without contrast. FINDINGS: There is no acute intracranial hemorrhage or, or midline shift identified. There is ventr icular and sulcal prominence. There is low-attenuation in the deep and periventricular white matter w ith area of old infarct left parietal region posterior watershed axial image 38 redemonstrated. There is no moderate size right acute frontal scalp hematoma. The calvarium is intact. Mild mucosal thicke osman involving ethmoid sinuses bilaterally is present. Globes are intact bilaterally. Vascular calcif ication distal internal carotid arteries bilaterally is redemonstrated. Cervical spine is visualized in its entirety from C1 through upper thoracic levels and redemonstrates exaggerated cervical kyphosis without evidence of acute fracture or dislocation. Prevertebral soft tissue appears within normal limits. The C1-C2 articulation is within normal limits on the coronal i mages. Vertebral body heights are maintained. There is mild multilevel disc space narrowing with post erior disc herniations C3-C4 C4-C5 level effacing anterior thecal sac on sagittal image 43 similar to prior. Axial images show multilevel uncovertebral facet degenerative changes bilaterally causing multilevel neural foraminal narrowing, this is most prominent right C3-C4 through right C5-C6 levels. Lungs show mild/moderate emphysematous change with scattered parenchymal scarring. There is partial visualizati on of pacemaker wires. IMPRESSION: 1. There is no acute fracture or dislocation evident in the cervical spine. 2. No acute intracranial hemorrhage or midline shift is seen. New moderate acute right frontal scalp hematoma.
--- NOTE | 2018-08-31 14:54 | XR ---
EXAMINATION TYPE: XR pelvis AP view DATE OF EXAM: 08/31/2018 CLINICAL HISTORY: Generalized pain after fall injury TECHNIQUE: A single AP view of the pelvis is obtained. COMPARISON: Prior pelvic x-ray June 12, 2018 FINDINGS: There is no acute fracture/dislocation evident in the pelvis. Metallic hardware from left hip arthroplasty is partially imaged new from prior. Right hip joint shows mild acetabular spurring s imilar to prior. There is stable narrowing at the pubic symphysis. Sacroiliac joints show some right- sided narrowing and sclerosis similar to prior. IMPRESSION: There is no acute fracture or dislocation in the pelvis.
--- NOTE | 2018-08-31 15:12 | XR ---
EXAMINATION TYPE: XR hand complete RT DATE OF EXAM: 08/31/2018 CLINICAL HISTORY: Pain after laceration injury fourth digit. TECHNIQUE: Frontal, lateral and oblique images of the right hand are obtained. COMPARISON: None. FINDINGS: Osseous structures are demineralized which is noted to lower radiographic sensitivity for e valuation of fine anatomic detail. There is no acute fracture/dislocation evident in the right hand. There is degenerative change throughout the phalanges most prominent third PIP and fourth DIP joint w ith mild to moderate narrowing and spurring. There is moderate to severe narrowing and spurring base of first metacarpal. Overlying gauze or bandage material distal fourth finger is present. IMPRESSION: There is no acute fracture or dislocation in the right hand.
--- NOTE | 2018-08-31 15:18 | XR ---
EXAMINATION TYPE: XR chest 2V DATE OF EXAM: 08/31/2018 COMPARISON: Chest x-ray June 12, 2018. HISTORY: Chest pain after fall injury. TECHNIQUE: Frontal and lateral views of the chest are obtained. FINDINGS: There is chronic parenchymal change without suspicious new focal air space opacity, pleura l effusion, or pneumothorax seen. The cardiac silhouette size remains enlarged with dual lead pacema ker in place. The osseous structures remain demineralized. There are old mid right posterior rib fr actures redemonstrated. Lap band device epigastric region is again seen. IMPRESSION: Chronic changes and cardiomegaly without acute pulmonary process.
--- NOTE | 2018-08-31 15:19 | XR ---
EXAMINATION TYPE: XR shoulder complete LT DATE OF EXAM: 08/31/2018 CLINICAL HISTORY: Pain after fall injury. TECHNIQUE: Three views of the left shoulder are obtained. COMPARISON: None. FINDINGS: Demineralization is present. There is no acute fracture/dislocation evident in the left sh oulder. There is moderate to severe narrowing with mild to moderate superior spurring of acromioclavi cular joint. Glenohumeral joint is maintained. The visualized ribs are intact and unremarkable. There is partial visualization of underlying pacemaker. IMPRESSION: There is no acute fracture or dislocation in the left shoulder.
--- NOTE | 2018-08-31 15:56 | ED ---
General Adult HPI - General Chief complaint: Fall Stated complaint: fall, head lac Time Seen by Provider: 08/31/18 13:12 Source: patient, EMS, RN notes reviewed Mode of arrival: EMS Limitations: no limitations - History of Present Illness Initial comments: 78-year-old female states she was taking a walk earlier today when she tripped over her feet. She states that she fell and hit her head on the concrete. Denies any loss of consciousness. No blood thinners. At this point patient is complaining of left shoulder pain and headache. Patient is not sure if she is up-to-date on tetanus. She is also complaining of right hand pain. Denies any back pain. Denies any neck pain. Patient has no other complaints at this time including shortness of breath, chest pain, abdominal pain, nausea or vomiting, headache, or visual changes. - Related Data Home Medications Medication Instructions Recorded Confirmed Citalopram Hydrobromide [CeleXA] 20 mg PO DAILY 05/20/16 08/31/18 Lisinopril [Zestril] 5 mg PO DAILY 05/20/16 08/31/18 Atorvastatin [Lipitor] 40 mg PO HS 06/12/18 08/31/18 Metoprolol Tartrate [Lopressor] 12.5 mg PO DAILY 06/12/18 08/31/18 Pantoprazole Sodium [Protonix] 40 mg PO DAILY 06/12/18 08/31/18 QUEtiapine [SEROquel] 12.5 mg PO HS 06/12/18 08/31/18 levETIRAcetam [Keppra] 250 mg PO Q12HR 06/12/18 08/31/18 Previous Rx's Medication Instructions Recorded Aspirin 325 mg PO BID #60 tab 06/15/18 Sennosides [Senokot] 1 tab PO BID #60 tablet 06/15/18 Allergies Allergy/AdvReac Type Severity Reaction Status Date / Time No Known Allergies Allergy Verified 08/31/18 13:27 Review of Systems ROS Statement: Those systems with pertinent positive or pertinent negative responses have been documented in the HPI. ROS Other: All systems not noted in ROS Statement are negative. Past Medical History Past Medical History: CVA/TIA, Dementia, Diabetes Mellitus, Hyperlipidemia, Hypertension, Memory Impairment, Osteoarthritis (OA), Syncope Additional Past Medical History / Comment(s): NIDDM type II-diet controlled, CVA-brain bleed 2018, DVT lower leg years ago, possible kidney stones, lower GI bleed, History of Any Multi-Drug Resistant Organisms: None Reported Past Surgical History: Bariatric Surgery, Cholecystectomy, Hysterectomy, Pace maker, Tonsillectomy Additional Past Surgical History / Comment(s): 2018 pacemaker insertion done at [facility], lap banding, colonoscopy/polypectomy-benign Past Anesthesia/Blood Transfusion Reactions: No Reported Reaction Type of Cardiac Device: Permanent Pacemaker Device Placement Date:: 2017 Past Psychological History: No Psychological Hx Reported Smoking Status: Former smoker - Past Family History Father Family Medical History: Diabetes Mellitus Mother Family Medical History: Unable to Obtain General Exam Limitations: no limitations General appearance: alert, in no apparent distress Head exam: Absent: atraumatic (Patient has a 8 cm laceration on the right f rontal bone.) Eye exam: Present: normal appearance, PERRL, EOMI, periorbital swelling (Mild periorbital edema with minimal ecchymosis noted of the right eye. Globe itself appears normal.). Absent: scleral icterus, conjunctival injection, periorbital tenderness (No significant tenderness noted around the right eye) ENT exam: Present: normal exam, normal oropharynx (Uvula midline), mucous membranes moist, TM's normal bilaterally (Negative hemotympanum), normal external ear exam Neck exam: Present: normal inspection, other (Currently in c-collar). Absent: tenderness (No significant tenderness), meningismus, lymphadenopathy Respiratory exam: Present: normal lung sounds bilaterally. Absent: respiratory distress, wheezes, rales, rhonchi, stridor Cardiovascular Exam: Present: regular rate, normal rhythm, normal heart sounds. Absent: systolic murmur, diastolic murmur, rubs, gallop, clicks GI/Abdominal exam: Present: soft, normal bowel sounds. Absent: distended, tenderness, guarding, rebound, rigid Back exam: Absent: vertebral tenderness (No cervical thoracic or lumbar spine tenderness) Neurological exam: Present: alert, oriented X3, CN II-XII intact Psychiatric exam: Present: normal affect, normal mood Course Vital Signs 08/31/18 08/31/18 13:11 15:00 Temperature 98.4 F Pulse Rate 90 67 Respiratory 20 16 Rate Blood Pressure 171/120 145/100 O2 Sat by Pulse 97 95 Oximetry Procedures - Laceration Laceration #1 Consent Obtained: verbal consent Indication: laceration Site: face Size (cm): 8 Description: linear, irregular Depth: involves muscle layer Anesthetic Used: lidocaine 1% Anesthesia Technique: local infiltration Amount (mls): 10 Pre-repair: wound explored, irrigated extensively (withsaline pressure irrigation) Type of Sutures: nylon (12), vicryl (3) Size of Sutures: 5-0 Number of Sutures: 12 Technique: simple, interrupted (6), running (6) Patient Tolerated Procedure: well, no complications Medical Decision Making - Medical Decision Making 78-year-old female presents for fall. Fall was purely mechanical. Patient tripped while walking. On exam she does have an 8 cm laceration noted to the right frontal bone. She is alert and oriented 3. Patient initially hypertensive likely from pain. CT C-spine shows no acute fracture or dislocation evident in the cervical spine. There is no acute intracranial hemorrhage or midline shift. There is a new moderate acute right frontal scalp hematoma present. Laceration was repaired using 12 sutures. X-ray of the shoulder is negative for acute fracture or dislocation. Spurring of the AC joint. X-ray of the pelvis shows no acute fracture or dislocation. No acute process noted in the chest. There is chronic changes with cardiomegaly. No acute fracture or dislocation in the right hand. Reevaluated patient, patient ambulatory with minimal assistance. Daughter comfortable taking patient home and will stay with her. Patient states she is feeling much better after pain medication was given. Patient will follow up with primary care in 1-2 days. She'll return here if she has any worsening symptoms. Disposition Clinical Impression: Head injury, Laceration Disposition: HOME SELF-CARE Condition: Good Instructions (If sedation given, give patient instructions): Head Injury (ED), Care For Your Stitches (ED), Laceration (ED) Additional Instructions: Tylenol for pain. Please follow up with primary care in 1-2 days. Return to the emergency department in 7 days for suture removal. Please return here to the emergency department if you have any worsening symptoms. Is patient prescribed a controlled substance at d/c from ED?: No Referrals: Remy Castle DO [Primary Care Provider] - 1-2 days Time of Disposition: 16:47
[2018-08-31 17:12] VITALS: BP 158/100; PULSE 88; RESP 18; TEMP 97.9
== END 2018-08-31 17:05 | disposition home or self-care (01) ==
LOC: EC 13:03
DX: S01.81XA Laceration without foreign body of other part of head, initial encounter (principal); E11.9 Type 2 diabetes mellitus without complications; E78.5 Hyperlipidemia, unspecified; I10 Essential (primary) hypertension; Z23 Encounter for immunization; Z79.899 Other long term (current) drug therapy; Z87.891 Personal history of nicotine dependence; Z86.73 Personal history of transient ischemic attack (TIA), and cerebral infarction without residual deficits; Z95.0 Presence of cardiac pacemaker; Z98.84 Bariatric surgery status; W01.198A Fall on same level from slipping, tripping and stumbling with subsequent striking against other object, initial encounter; Y93.01 Activity, walking, marching and hiking
CPT/HCPCS: 72170; 73030; 73130; 71046; 72125; 70450; 90715; 99284; 12015; 90471; 96374; 96376; J2270; J2001

== ENCOUNTER 2018-09-05 10:49 | Emergency (ER) | payer MEDICARE ==
[2018-09-05 10:55] VITALS: BP 136/68; PULSE 67; RESP 18; TEMP 98
--- NOTE | 2018-09-05 11:29 | ED ---
General Adult HPI - General Source: patient, RN notes reviewed Mode of arrival: wheelchair Limitations: no limitations <Jerardo Hill - Last Filed: 09/05/18 13:00> <Marciano Pérez - Last Filed: 09/05/18 14:33> - General Chief complaint: Extremity Problem,Nontraumatic Stated complaint: blood clot lt arm Time Seen by Provider: 09/05/18 11:00 - History of Present Illness Initial comments: 78-year-old female with complicated past medical history including a hemorrhagic stroke in 2018, recent falls presents to the emergency room for left arm pain. Patient had a fall 5 days ago and sustained a head injury requiring sutures. No loss of consciousness at that time, no blood thinners. However over the past several days patient has had increasing left upper arm pain and notable bruising. She saw her primary care provider who ordered an ultrasound. Ultrasound did reveal a DVT in the left brachial and ulnar veins.Patient has no other complaints at this time including shortness of breath, chest pain, abdominal pain, nausea or vomiting, headache, or visual changes. (Jerardo Hill) - Related Data Home Medications Medication Instructions Recorded Confirmed Citalopram Hydrobromide [CeleXA] 20 mg PO DAILY 05/20/16 09/05/18 Lisinopril [Zestril] 5 mg PO DAILY 05/20/16 09/05/18 Atorvastatin [Lipitor] 40 mg PO HS 06/12/18 09/05/18 Pantoprazole Sodium [Protonix] 40 mg PO DAILY 06/12/18 09/05/18 QUEtiapine [SEROquel] 12.5 mg PO HS 06/12/18 09/05/18 levETIRAcetam [Keppra] 250 mg PO Q12HR 06/12/18 09/05/18 Metoprolol Succinate [Toprol XL] 12.5 mg PO DAILY 09/05/18 09/05/18 Sennosides [Senokot] 8.6 mg PO BID 09/05/18 09/05/18 traMADol HCL [Ultram] 50 mg PO QID 09/05/18 09/05/18 Previous Rx's Medication Instructions Recorded Aspirin 325 mg PO BID #60 tab 06/15/18 Apixaban [Eliquis] 0 mg PO DIRECTED #74 tab 09/05/18 Allergies Allergy/AdvReac Type Severity Reaction Status Date / Time No Known Allergies Allergy Verified 09/05/18 11:14 Review of Systems ROS Other: All systems not noted in ROS Statement are negative. <Jerardo Hill P - Last Filed: 09/05/18 13:00> ROS Other: All systems not noted in ROS Statement are negative. <BetoMarciano - Last Filed: 09/05/18 14:33> ROS Statement: Those systems with pertinent positive or pertinent negative responses have been documented in the HPI. Past Medical History Past Medical History: CVA/TIA, Dementia, Diabetes Mellitus, Hyperlipidemia, Hypertension, Memory Impairment, Osteoarthritis (OA), Syncope Additional Past Medical History / Comment(s): NIDDM type II-diet controlled, CVA-brain bleed 2018, DVT lower leg years ago, possible kidney stones, lower GI bleed, History of Any Multi-Drug Resistant Organisms: None Reported Past Surgical History: Bariatric Surgery, Cholecystectomy, Hysterectomy, Pacemaker, Tonsillectomy Additional Past Surgical History / Comment(s): 2018 pacemaker insertion done at [facility], lap banding, colonoscopy/polypectomy-benign Past Anesthesia/Blood Transfusion Reactions: No Reported Reaction Type of Cardiac Device: Permanent Pacemaker Device Placement Date:: 2017 Past Psychological History: No Psychological Hx Reported Smoking Status: Former smoker - Past Family History Father Family Medical History: Diabetes Mellitus Mother Family Medical History: Unable to Obtain <Jerardo Hill P - Last Filed: 09/05/18 13:00> General Exam Limitations: no limitations General appearance: alert, in no apparent distress Head exam: Absent: atraumatic (sutures noted to right side of face) Eye exam: Present: normal appearance, PERRL, EOMI. Absent: scleral icterus, conjunctival injection, periorbital swelling ENT exam: Present: normal exam, normal oropharynx, mucous membranes moist, TM's normal bilaterally, normal external ear exam, other (right sided facial contusion noted) Neck exam: Present: normal inspection. Absent: tenderness, meningismus, lymphadenopathy Respiratory exam: Present: normal lung sounds bilaterally. Absent: respiratory distress, wheezes, rales, rhonchi, stridor Cardiovascular Exam: Present: regular rate, normal rhythm, normal heart sounds. Absent: systolic murmur, diastolic murmur, rubs, gallop, clicks Extremities exam: Present: tenderness (tenderness to the left humeral area), normal capillary refill (cap refill < 2 seconds, radial pulse 2+), other (significant ecchymosis noted to the left humerus). Absent: full ROM (decreased ROM due to pain) Neurological exam: Present: alert, oriented X3, CN II-XII intact Psychiatric exam: Present: normal affect, normal mood <Jerardo Hill - Last Filed: 09/05/18 13:00> Course Vital Signs 09/05/18 10:52 Temperature 98.0 F Pulse Rate 67 Respiratory 18 Rate Blood Pressure 136/68 O2 Sat by Pulse 98 Oximetry Medical Decision Making <Jerardo Hill - Last Filed: 09/05/18 13:00> <Marciano Pérez - Last Filed: 09/05/18 14:33> - Medical Decision Making 78-year-old female presents to the emergency department for a chief complaint of left arm pain. Patient states that this has been ongoing since a fall on Sunday. Patient was seen in the emergency department at that time. Had x- rays of the shoulder which were negative. Patient was sent today for an ultrasound of the left upper extremity as she did have significant ecchymosis noted. Ultrasound did show left upper extremity DVT within brachial and ulnar veins. She then presented to the emergency department. Patient does have a history of hemorrhagic stroke in 2018 as well as fall risk and she did fall 5 days ago with a head injury. CT brain was negative at that time for hemorrhage. However given this history Dr Pérez spoke with Dr. Gonzalez who recommended starting on Eliquis. patient given dose here and coupon packet. X-ray of the humerus was repeated which shows a possible fracture at the proximal metaphysis left humerus, sling was applied and recommended orbital follow-up. I did discuss risks of Eliquis as well as returning for any headaches or other symptoms. (Jerardo Hill) Case discussed with Dr. Gonzalez. Vascular surgery. He is able to evaluate this patient within one week. He does recommend anticoagulation with Eliquis. (Marciano Pérez) Disposition Is patient prescribed a controlled substance at d/c from ED?: No Time of Disposition: 13:00 <Jerardo Hill - Last Filed: 09/05/18 13:00> <Marciano Pérez N - Last Filed: 09/05/18 14:33> Clinical Impression: Deep venous thrombosis of upper extremity, Proximal humeral fracture Disposition: HOME SELF-CARE Condition: Good Instructions (If sedation given, give patient instructions): Deep Vein Thrombosis (ED), Proximal Humerus Fracture (ED) Additional Instructions: Please take Eliquis as directed. Please follow-up with Dr. Gonzalez, he would like to see you in the office on Sunday. Monitor for any worsening symptoms such as headache and return if this occurs immediately. Follow-up with orthopedics as well. Wear sling until that time. Take Tylenol for pain. Follow-up with primary care in 1-2 days. Return to the emergency department if you have any worsening symptoms. Prescriptions: Apixaban [Eliquis] 0 mg PO DIRECTED #74 tab Referrals: Remy Castle DO [Primary Care Provider] - 1-2 days Jalen Gonzalez MD [STAFF PHYSICIAN] - 1-2 days Jay Mills DO [Doctor of Osteopathic Medicine] - 1-2 days
--- NOTE | 2018-09-05 12:05 | XR ---
EXAMINATION TYPE: XR humerus LT DATE OF EXAM: 09/05/2018 COMPARISON: 08/31/2018 left shoulder HISTORY: Fall, pain TECHNIQUE: 2 view left humerus FINDINGS: Humeral head articulates with the glenoid. Acromioclavicular junction has mild hypertrophy superiorly. Elbow joint space within the [id number] is normal. There is a lucency within the lateral humeral metaphysis. Partial nondisplaced fracture of the greate r tuberosity may be present. Correlate with location of the patient's pain. IMPRESSION: 1. Clinical consideration for a nondisplaced fracture at the proximal metaphysis left humerus or gre ater tuberosity. 2. Left humerus is otherwise unremarkable.
[2018-09-05] MEDS ORDERED: APIXABAN 5 MG TAB PO STA (12:22)
== END 2018-09-05 13:19 | disposition home or self-care (01) ==
LOC: EC 10:49
DX: S42.252A Displaced fracture of greater tuberosity of left humerus, initial encounter for closed fracture (principal); I82.622 Acute embolism and thrombosis of deep veins of left upper extremity; I82.890 Acute embolism and thrombosis of other specified veins; E11.9 Type 2 diabetes mellitus without complications; F03.90 Unspecified dementia, unspecified severity, without behavioral disturbance, psychotic disturbance, mood disturbance, and anxiety; E78.5 Hyperlipidemia, unspecified; I10 Essential (primary) hypertension; Z79.899 Other long term (current) drug therapy; Z86.73 Personal history of transient ischemic attack (TIA), and cerebral infarction without residual deficits; Z95.0 Presence of cardiac pacemaker; Z87.891 Personal history of nicotine dependence; Z98.84 Bariatric surgery status; W19.XXXA Unspecified fall, initial encounter
CPT/HCPCS: 99283

== ENCOUNTER → 2018-09-05 | Outpatient (CLI) | payer MEDICARE ==
--- NOTE | 2018-09-05 10:37 | US ---
EXAMINATION TYPE: US venous doppler duplex UE LT DATE OF EXAM: 09/05/2018 COMPARISON: NONE CLINICAL HISTORY: R22.32 SWELLING, MASS AND LUMP LT UPPER LIMB. Left arm bruising. Patient fell Satu rday. Not on blood thinners. Hx DVT in legs x years ago SIDE PERFORMED: Left Limited exam due to patient pain Left Arm: Appears POSITIVE for DVT in one of Brachial veins and ulnar veins. No vascular flow visuali zed and noncompressible. IMPRESSION: 1. Left upper extremity deep venous ultrasound positive for deep venous thrombosis within brachial an d ulnar veins. A Red level critical message alert has been initiated for Remy Castle DO via the [employer] Critical Results System on 09/05/2018 10:35 AM. This message alert has been sent to Remy Castle DO via the preferences provided by the clinician for the receipt of Radiology Critical Findings. [facility] [id number].
== END | disposition home or self-care (01) ==
LOC: RADUSWWP 09:24
PROVIDERS: ATTEND Family Medicine
DX: I82.622 Acute embolism and thrombosis of deep veins of left upper extremity (principal)

== ENCOUNTER 2018-09-14 08:17 | Emergency (ER) | payer MEDICARE ==
[2018-09-14 08:21] VITALS: RESP 18
--- NOTE | 2018-09-14 08:37 | ED ---
Fall HPI - General Source: patient, family Mode of arrival: wheelchair Limitations: no limitations <Alphonse Rice - Last Filed: 09/14/18 09:13> <Marciano Louis - Last Filed: 09/14/18 09:20> - General Chief Complaint: Fall Stated Complaint: Fell head injury Time Seen by Provider: 09/14/18 08:31 - History of Present Illness Initial Comments: This is a 78-year-old female presents emergency Department with chief complaint of a trip and fall. Patient states she got this morning tripped over her foot falling did strike her head. Patient has had multiple recent falls which is not out of the usual for her. Patient is on Eliquis because she's had a recent fall and DVT to her left arm. Patient does complain of mild headache denies any upper back, chest pain, low back pain, bowel bladder incontinence or retention. Patient complains of worsening left shoulder pain. Patient is here with family who states that she is at her normal baseline. (Alphonse Rice) - Related Data Home Medications Medication Instructions Recorded Confirmed Citalopram Hydrobromide [CeleXA] 20 mg PO DAILY 05/20/16 09/14/18 Lisinopril [Zestril] 5 mg PO DAILY 05/20/16 09/14/18 Atorvastatin [Lipitor] 40 mg PO HS 06/12/18 09/14/18 Pantoprazole Sodium [Protonix] 40 mg PO DAILY 06/12/18 09/14/18 QUEtiapine [SEROquel] 25 mg PO HS 06/12/18 09/14/18 levETIRAcetam [Keppra] 250 mg PO Q12HR 06/12/18 09/14/18 Metoprolol Succinate [Toprol XL] 12.5 mg PO DAILY 09/05/18 09/14/18 traMADol HCL [Ultram] 50 mg PO QID 09/05/18 09/14/18 Apixaban [Eliquis] 5 mg PO BID 09/14/18 09/14/18 Ferrous Sulfate [Feosol] 325 mg PO DAILY 09/14/18 09/14/18 Allergies Allergy/AdvReac Type Severity Reaction Status Date / Time No Known Allergies Allergy Verified 09/14/18 08:29 Review of Systems ROS Other: All systems not noted in ROS Statement are negative. <Alphonse Rice - Last Filed: 09/14/18 09:13> ROS Other: All systems not noted in ROS Statement are negative. <Marciano Louis - Last Filed: 09/14/18 09:20> ROS Statement: Those systems with pertinent positive or pertinent negative responses have been documented in the HPI. Past Medical History Past Medical History: CVA/TIA, Dementia, Diabetes Mellitus, Hyperlipidemia, Hypertension, Memory Impairment, Osteoarthritis (OA), Syncope Additional Past Medical History / Comment(s): NIDDM type II-diet controlled, CVA-brain bleed 2018, DVT lower leg years ago, possible kidney stones, lower GI bleed, History of Any Multi-Drug Resistant Organisms: None Reported Past Surgical History: Bariatric Surgery, Cholecystectomy, Hysterectomy, Pacemaker, Tonsillectomy Additional Past Surgical History / Comment(s): 2018 pacemaker insertion done at [facility], lap banding, colonoscopy/polypectomy-benign Past Anesthesia/Blood Transfusion Reactions: No Reported Reaction Type of Cardiac Device: Permanent Pacemaker Device Placement Date:: 2017 Past Psychological History: No Psychological Hx Reported Smoking Status: Former smoker Past Alcohol Use History: None Reported Past Drug Use History: None Reported - Past Family History Father Family Medical History: Diabetes Mellitus Mother Family Medical History: Unable to Obtain <Alphonse Rice - Last Filed: 09/14/18 09:13> General Exam Limitations: physical limitation General appearance: alert, in no apparent distress Head exam: Present: atraumatic, normocephalic, normal inspection Eye exam: Present: PERRL, EOMI, periorbital swelling, periorbital tenderness, other (Ecchymosis noted on the face, left periorbital). Absent: normal appearance, scleral icterus, conjunctival injection ENT exam: Present: normal exam, normal oropharynx, mucous membranes moist, TM's normal bilaterally Neck exam: Present: normal inspection, full ROM. Absent: tenderness, meningismus, lymphadenopathy Respiratory exam: Present: normal lung sounds bilaterally. Absent: respiratory distress, wheezes, rales, rhonchi, stridor, chest wall tenderness Cardiovascular Exam: Present: regular rate, normal rhythm, normal heart sounds. Absent: systolic murmur, diastolic murmur, rubs, gallop, clicks GI/Abdominal exam: Present: soft, normal bowel sounds. Absent: distended, tenderness, guarding, rebound, rigid Extremities exam: Present: other (Left shoulder diffuse tenderness with palpation, limited range of motion, neurovascular intact mild swelling to left arm lower extremity strength equal bilaterally, no tenderness) Back exam: Present: normal inspection, full ROM. Absent: tenderness, paraspinal tenderness, vertebral tenderness Neurological exam: Present: alert, oriented X3, CN II-XII intact, reflexes normal. Absent: motor sensory deficit Skin exam: Present: warm, dry, intact, normal color. Absent: rash <Alphonse Rice - Last Filed: 09/14/18 09:13> Course <Marciano Louis - Last Filed: 09/14/18 09:20> Vital Signs 09/14/18 08:19 Temperature 98.0 F Pulse Rate 72 Respiratory 18 Rate Blood Pressure 140/77 O2 Sat by Pulse 100 Oximetry - Reevaluation(s) Reevaluation #1: 09/14/18 09:20 PA supervision: I proceeded [id number] evaluation patient did discuss findings with her and her family. She does demonstrate evidence of some mild dehydration she was encouraged to increase her oral fluid intake. No further evidence of any new injuries noted imaging. I do agree with the assessment and plan. (Marciano Louis) Medical Decision Making <Alphonse Rice - Last Filed: 09/14/18 09:13> - Medical Decision Making 78-year-old female presented for fall, head injury. Patient CT of the brain and C-spine negative for acute process. Patient has known fracture of her left humerus which was re-x-rayed because she fell on it and does not show any progression of this fracture. Patient will be discharged return parameters were discussed. We did discuss possibly delayed bleed and return parameters. (Alphonse Rice) Disposition Is patient prescribed a controlled substance at d/c from ED?: No Time of Disposition: 09:14 <Alphonse Rice - Last Filed: 09/14/18 09:13> <Marciano Louis - Last Filed: 09/14/18 09:20> Clinical Impression: Fall, Proximal humeral fracture, Head injury Disposition: HOME SELF-CARE Condition: Stable Instructions (If sedation given, give patient instructions): Head Injury (ED) Additional Instructions: Please return to the Emergency Department if symptoms worsen or any other concerns. Referrals: Remy Castle DO [Primary Care Provider] - 1-2 days
--- NOTE | 2018-09-14 09:07 | CT ---
EXAMINATION TYPE: CT brain ru [place] con DATE OF EXAM: 09/14/2018 COMPARISON: Previous study dated 08/31/2018 HISTORY: Fell, head injury on Eliquis CT DLP: 1347.6 mGycm Automated exposure control for dose reduction was used. TECHNIQUE: CT scan of the head and cervical spine are performed without contrast. FINDINGS: BRAIN: Central structures are midline. There are mild changes of atrophy. There is diffuse periventri cular white matter lucency compatible with chronic white matter ischemic change. There is no focal le pedro, mass effect or midline shift. I do not see evidence of intracranial blood. Visualized portions of the paranasal sinuses and mastoids are clear. The bony calvarium is intact. There is soft tissue swelling and hematoma overlying the left orbit. IMPRESSION: 1. NO ACUTE INTRACRANIAL ABNORMALITY. 2. PERIORBITAL HEMATOMA ON THE LEFT. 3. DEGENERATIVE CHANGE. CERVICAL SPINE: There is evidence of interstitial lung disease within the visualized portions of the lungs. Prevertebral soft tissues are normal. Vertebral body height and alignment are maintained. Atlantoaxial relationships are normal. There is m ild, diffuse degenerative disc disease. There is mild diffuse facet arthropathy. No fractures are sukumar ntified. IMPRESSION: 1. NO ACUTE OSSEOUS LESION. 2. DEGENERATIVE CHANGE. 3. INTERSTITIAL LUNG DISEASE.
--- NOTE | 2018-09-14 09:16 | XR ---
EXAMINATION TYPE: XR shoulder complete LT , 5 VIEWS DATE OF EXAM ORDERED: 09/14/2018 HISTORY: Fall, recent humerus fracture, pain. COMPARISON: None. FINDINGS: A pacemaker projects over the left upper chest. There are moderate hypertrophic changes in the left AC joint. There is a lucency in the lateral aspec t of the greater tuberosity best seen in only one projection. I could not exclude an avulsion fractur e. No dislocation is seen. IMPRESSION: 1. I CANNOT EXCLUDE AN AVULSION FRACTURE OF THE GREATER TUBEROSITY OF THE HUMERUS. 2. FAIRLY MARKED HYPERTROPHIC CHANGES IN THE LEFT AC JOINT.
[2018-09-14 09:25] VITALS: BP 134/62; PULSE 65; TEMP 97.6
== END 2018-09-14 09:27 | disposition home or self-care (01) ==
LOC: EC 08:17
DX: S42.202A Unspecified fracture of upper end of left humerus, initial encounter for closed fracture (principal); S00.12XA Contusion of left eyelid and periocular area, initial encounter; E78.5 Hyperlipidemia, unspecified; I10 Essential (primary) hypertension; Z86.73 Personal history of transient ischemic attack (TIA), and cerebral infarction without residual deficits; Z86.718 Personal history of other venous thrombosis and embolism; Z95.0 Presence of cardiac pacemaker; Z87.39 Personal history of other diseases of the musculoskeletal system and connective tissue; Z87.891 Personal history of nicotine dependence; Z79.01 Long term (current) use of anticoagulants; Z79.899 Other long term (current) drug therapy; W01.0XXA Fall on same level from slipping, tripping and stumbling without subsequent striking against object, initial encounter; Y92.009 Unspecified place in unspecified non-institutional (private) residence as the place of occurrence of the external cause
CPT/HCPCS: 70450; 72125; 99284

== ENCOUNTER 2018-09-21 12:03 | Emergency (ER) | payer MEDICARE ==
[2018-09-21 12:25] VITALS: BP 152/75; PULSE 78; RESP 20; TEMP 98.8
--- NOTE | 2018-09-21 12:45 | ED ---
General Adult HPI - General Chief complaint: Fall Stated complaint: fall Time Seen by Provider: 09/21/18 12:28 Source: patient, family, RN notes reviewed Mode of arrival: ambulatory Limitations: altered mental status - History of Present Illness Initial comments: Patient is a pleasant 78-year-old female presenting to the emergency Department with son for a fall. Patient does have history of chronic falls, somewhat more recently. Patient did have a recent fall where she did hit her head and fractured her left arm. Patient left arm is in a sling. Patient has had discomfort of her left arm. Patient did take an Ultram today. Patient today had a fall down one or 2 steps and did strike her head on concrete. No loss of consciousness. No change in mental status. Majority of history is taken from the son. Patient does have advanced dementia. No chest pain or dyspnea. No abdominal pain. Patient does admit to having some increased discomfort of her left elbow which is new. Patient does complain of discomfort of her left forehead. - Related Data Home Medications Medication Instructions Recorded Confirmed Citalopram Hydrobromide [CeleXA] 20 mg PO DAILY 05/20/16 09/21/18 Lisinopril [Zestril] 5 mg PO DAILY 05/20/16 09/21/18 Atorvastatin [Lipitor] 40 mg PO HS 06/12/18 09/21/18 Pantoprazole Sodium [Protonix] 40 mg PO DAILY 06/12/18 09/21/18 QUEtiapine [SEROquel] 25 mg PO HS 06/12/18 09/21/18 levETIRAcetam [Keppra] 250 mg PO Q12HR 06/12/18 09/21/18 Metoprolol Succinate [Toprol XL] 12.5 mg PO DAILY 09/05/18 09/21/18 traMADol HCL [Ultram] 50 mg PO QID 09/05/18 09/21/18 Apixaban [Eliquis] 5 mg PO BID 09/14/18 09/21/18 Ferrous Sulfate [Feosol] 325 mg PO DAILY 09/14/18 09/21/18 Allergies Allergy/AdvReac Type Severity Reaction Status Date / Time No Known Allergies Allergy Verified 09/21/18 12:57 Review of Systems ROS Statement: Those systems with pertinent positive or pertinent negative responses have been documented in the HPI. ROS Other: All systems not noted in ROS Statement are negative. Constitutional: Denies: fever Eyes: Denies: eye pain ENT: Denies: ear pain Respiratory: Denies: cough, dyspnea Cardiovascular: Denies: chest pain Endocrine: Denies: fatigue Gastrointestinal: Denies: abdominal pain Genitourinary: Denies: dysuria Musculoskeletal: Denies: back pain Skin: Denies: rash Neurological: Reports: as per HPI. Denies: weakness Past Medical History Past Medical History: CVA/TIA, Dementia, Diabetes Mellitus, Hyperlipidemia, Hypertension, Memory Impairment, Osteoarthritis (OA), Syncope Additional Past Medical History / Comment(s): NIDDM type II-diet controlled, CVA-brain bleed 2018, DVT lower leg years ago, possible kidney stones, lower GI bleed, History of Any Multi-Drug Resistant Organisms: None Reported Past Surgical History: Bariatric Surgery, Cholecystectomy, Hysterectomy, Pacemaker, Tonsillectomy Additional Past Surgical History / Comment(s): 2018 pacemaker insertion done at [facility], lap banding, colonoscopy/polypectomy-benign Past Anesthesia/Blood Transfusion Reactions: No Reported Reaction Type of Cardiac Device: Permanent Pacemaker Device Placement Date:: 2017 Past Psychological History: No Psychological Hx Reported Smoking Status: Former smoker Past Alcohol Use History: None Reported Past Drug Use History: None Reported - Past Family History Father Family Medical History: Diabetes Mellitus Mother Family Medical History: Unable to Obtain General Exam Limitations: no limitations General appearance: alert, in no apparent distress Head exam: Present: other (Left forehead soft tissue swelling. Ecchymosis near the left eye.) Eye exam: Present: normal appearance, PERRL, EOMI. Absent: nystagmus ENT exam: Present: normal oropharynx Neck exam: Present: tenderness (Mild diffuse tenderness) Respiratory exam: Present: normal lung sounds bilaterally Cardiovascular Exam: Present: regular rate, normal rhythm GI/Abdominal exam: Present: soft. Absent: tenderness Extremities exam: Present: tenderness (Tenderness or lateral upper arms and left elbow) Back exam: Present: normal inspection. Absent: vertebral tenderness Neurological exam: Present: alert, CN II-XII intact. Absent: motor sensory deficit Expanded Patient oriented to: Present: person, place Speech: Present: fluid speech Motor strength exam: RUE: 5, LUE: 5, RLE: 5, LLE: 5 Psychiatric exam: Present: normal affect, normal mood Skin exam: Present: other (Ecchymosis left orbital region and forehead) Course Vital Signs 09/21/18 12:15 Temperature 98.8 F Pulse Rate 78 Respiratory 20 Rate Blood Pressure 152/75 O2 Sat by Pulse 96 Oximetry Medical Decision Making - Medical Decision Making Patient reevaluated. Patient and son updated. Recommended to hold anticoagulant until follow-up with primary care physician on Sunday. Son is comfortable with discharge. - Radiology Data Radiology results: report reviewed (Computed tomography scan of the brain, cervical spine, and facial bones revealed no acute abnormality.), image reviewed (X-ray of the left humerus shows a proximal fracture, similar to previous. X- ray of the right humerus, pelvis and chest x-ray revealed no acute process. Chest x-ray appears to have old rib fractures.) Disposition Clinical Impression: Head injury, Fall Disposition: HOME SELF-CARE Condition: Serious Instructions (If sedation given, give patient instructions): Fall Prevention for Older Adults (ED), Head Injury (ED) Additional Instructions: Please follow-up with primary care physician on Sunday. Hold blood thinner until advised further by primary care physician on Sunday. Return for change in mental status, weakness, increase and falls, worsening symptoms or other concerns. Is patient prescribed a controlled substance at d/c from ED?: No Referrals: Remy Castle DO [Primary Care Provider] - 1-2 days Pantera Gonsales DO [Medical Doctor] - 1-2 days Time of Disposition: 14:43
--- NOTE | 2018-09-21 13:04 | XR ---
EXAMINATION TYPE: XR pelvis AP view , ONE VIEW DATE OF EXAM ORDERED: 09/21/2018 HISTORY: Pain. COMPARISON: Previous study dated 08/31/2018. FINDINGS: There is a left hip hemiarthroplasty in place. There are degenerative changes in the right hip. No fracture or dislocation is seen. IMPRESSION: NO ACUTE OSSEOUS LESION.
--- NOTE | 2018-09-21 13:06 | XR ---
EXAMINATION TYPE: XR chest 1V portable DATE OF EXAM: 09/21/2018 HISTORY: pain. REFERENCE: Previous study dated 08/31/2018. FINDINGS: There is a bipolar pacemaker place on the left. Heart size upper limits of normal. The lungs are clear. Pleural spaces appear clear. IMPRESSION: BORDERLINE CARDIOMEGALY.
--- NOTE | 2018-09-21 13:08 | XR ---
EXAMINATION TYPE: XR humerus bilateral , 4 VIEWS DATE OF EXAM ORDERED: 09/21/2018 HISTORY: Pain. COMPARISON: None. FINDINGS: Is a minimally displaced fracture of the greater tuberosity of the left humerus. The right humerus. Normal. IMPRESSION: MINIMALLY DISPLACED FRACTURE OF THE GREATER TUBEROSITY OF THE LEFT HUMERUS. CODE A: INITIAL ENCOUNTER FOR CLOSED FRACTURE.
--- NOTE | 2018-09-21 14:10 | CT ---
EXAMINATION TYPE: CT facial bones wo con DATE OF EXAM: 09/21/2018 COMPARISON: None HISTORY: Pain and injury CT DLP: mGycm Automated exposure control for dose reduction was used. TECHNIQUE: CT scan of the sinuses is performed without contrast, axial images are obtained, coronal r eformatted images are also reviewed. FINDINGS: The mandibular ring is intact. Temporomandibular joints appear normal. Zygomatic arches kizzy ear normal. Nasal bone is intact. There is no evidence of a blowout fracture. Maxilla is intact. Orbi zachary margins are intact. There is no evidence of orbital mass. I see no bony destructive process. IMPRESSION: Negative CT scan of the facial bones. No fracture.
--- NOTE | 2018-09-21 14:12 | CT ---
EXAMINATION TYPE: CT brain ru [place] DATE OF EXAM: 09/21/2018 COMPARISON: Previous study dated 09/14/2018 HISTORY: Pain following trauma CT DLP: 2320 mGycm Automated exposure control for dose reduction was used. TECHNIQUE: CT scan of the head and cervical spine are performed without contrast. FINDINGS: BRAIN: There is a left frontal and temporal scalp hematoma. There are generalized changes of sulcal prominence and ventriculomegaly, compatible with atrophic adarsh nge. There is diffuse periventricular white matter lucency, compatible with chronic white matter isch emic change. There is no acute focal lesion, mass effect or midline shift identified. I do not see ev idence of intracranial blood. Visualized portions of the paranasal sinuses and mastoids are clear. IMPRESSION: 1. NO ACUTE INTRACRANIAL ABNORMALITY. 2. DEGENERATIVE CHANGE. CERVICAL SPINE: There are emphysematous changes within the visualized portions of the lungs. Prevertebral soft tissues are normal. Vertebral body height and alignment are maintained. Atlantoaxial relationships are normal. There is mild disc space loss at C5-6 and C6-7. There is mild uncovertebral joint disease at these le vels. There is mild facet arthropathy on the right at C3-4 and bilaterally at C4-5 and C5-6. No defin ite protrusion is seen. No fracture is identified. IMPRESSION: 1. NO ACUTE OSSEOUS LESION. 2. DEGENERATIVE CHANGE. 3. EMPHYSEMATOUS CHANGE.
[2018-09-21] MEDS ORDERED: Acetaminophen-Codeine 300-30mg TAB PO STA (14:41)
== END 2018-09-21 15:00 | disposition home or self-care (01) ==
LOC: EC 12:03
DX: S05.12XA Contusion of eyeball and orbital tissues, left eye, initial encounter (principal); E78.5 Hyperlipidemia, unspecified; I10 Essential (primary) hypertension; Z95.0 Presence of cardiac pacemaker; Z87.891 Personal history of nicotine dependence; Z86.73 Personal history of transient ischemic attack (TIA), and cerebral infarction without residual deficits; Z79.01 Long term (current) use of anticoagulants; Z79.899 Other long term (current) drug therapy; W10.9XXA Fall (on) (from) unspecified stairs and steps, initial encounter; Y92.89 Other specified places as the place of occurrence of the external cause
CPT/HCPCS: 70450; 70486; 71045; 72125; 72170; 99284

== ENCOUNTER 2018-12-25 18:56 | Observation (INO) | payer MEDICARE ==
[2018-12-25 20:46] LABS: Basophils % (A) 0 %; Eosinophils # (A) 0.1 k/uL (0-0.7); Eosinophils % (A) 2 %; HGB 12.4 gm/dL (11.4-16.0); Lymphocytes # (A) 1.3 k/uL (1.0-4.8); Lymphocytes % (A) 24 %; MCH 30.6 pg (25.0-35.0); MCHC 33.4 g/dL (31.0-37.0); MCV 91.6 fL (80.0-100.0); Mean Platelet Volume 6.6; Monocytes # (A) 0.3 k/uL (0-1.0); Monocytes % (A) 5 %; Neutrophils # (A) 3.9 k/uL (1.3-7.7); Neutrophils % (A) 68 %; Platelet Count 206 k/uL (150-450); RBC 4.04 m/uL (3.80-5.40); RDW 13.4 % (11.5-15.5); WBC 5.7 k/uL (3.8-10.6)
[2018-12-25 20:55] LABS: Appearance,Urine Clear (Clear); Bacteria,Urine Rare /hpf; Bilirubin,Urine Negative (Negative); Blood,Urine Negative (Negative); Color,Urine Yellow; Glucose,Urine (UA) Negative (Negative); Hyaline Casts,Urine 4 /lpf (0-2); Ketones,Urine Negative (Negative); Leukocyte Esterase,Urine Large (Negative); Mucus,Urine Occasional /hpf; Nitrite,Urine Negative (Negative); PH, Urine 5.5 (5.0-8.0); Protein,Urine Trace (Negative); RBC,Urine 2 /hpf (0-5); Squamous Epithelial Cell,Urine <1 /hpf (0-4); WBC,Urine 7 /hpf (0-5)
[2018-12-25 21:01] LABS: Partial Thromboplastin Time 21.4 sec (22.0-30.0); Prothrombin Time 10.5 sec (9.0-12.0)
[2018-12-25 21:02] LABS: Amphetamine Screen,Urine Not Detected (NotDetected); Barbiturate Screen,Urine Not Detected (NotDetected); Benzodiazepines Screen,Urine Not Detected (NotDetected); Cocaine Screen,Urine Not Detected (NotDetected); Methadone Screen, Urine Not Detected (NotDetected); Opiate Screen,Urine Not Detected (NotDetected); Oxycodone Screen, Urine Not Detected (NotDetected); Phencyclidine Screen,Urine Not Detected (NotDetected); Tricyclic Antidepressant,Urine Not Detected (NotDetected); Urn Cannabinoid Scrn Not Detected (NotDetected)
--- NOTE | 2018-12-25 21:03 | CT ---
EXAMINATION TYPE: CT brain wo con DATE OF EXAM: 12/25/2018 COMPARISON: 09/21/2018 HISTORY: Altered mental status. History of dementia. CT DLP: 1099.4 mGycm Automated exposure control for dose reduction was used. TECHNIQUE: CT scan of the head is performed without contrast. FINDINGS: There is no acute intracranial hemorrhage or midline shift identified. There is diffuse v entricular and sulcal prominence consistent with diffuse age-related cerebral atrophy. There is low- attenuation in the periventricular white matter consistent with chronic small vessel ischemic change. Extensive confluent white matter changes seen of the left parietal lobe as noted on the prior of , similar in degree. The globes are intact and the visualized sinuses are clear. There is re solution of the previously seen left frontal scalp hematoma. IMPRESSION: No acute intracranial hemorrhage or midline shift. There is diffuse age-related cerebra l atrophy and chronic small vessel ischemic change noted.
[2018-12-25 21:04] LABS: ALT 23 U/L (9-52); AST 20 U/L (14-36); Acetaminophen <10.0 ug/mL; African American GFR (CKD) 86 (>60 ml/min/1.73 sqM); Albumin 3.7 g/dL (3.5-5.0); Alkaline Phosphatase 86 U/L (38-126); Anion Gap 9 mmol/L; Blood Urea Nitrogen 21 mg/dL (7-17); Calcium 9.2 mg/dL (8.4-10.2); Carbon Dioxide 25 mmol/L (22-30); Chloride 108 mmol/L (98-107); Creatine Kinase 48 U/L (30-135); Glucose 156 mg/dL (74-99); Potassium 3.6 mmol/L (3.5-5.1); Salicylate <1.0 mg/dL; Sodium 142 mmol/L (137-145); Total Bilirubin 0.3 mg/dL (0.2-1.3); Total Protein 6.7 g/dL (6.3-8.2)
[2018-12-25] MEDS ORDERED: cefTRIAXone IN SWFI 1,000 MG/10 ML SYRINGE IVP STA (22:11)
[2018-12-25] MEDS ORDERED: NALOXONE 0.4 MG/ML 1 ML VIAL IV PRN (22:13)
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
[2018-12-25] MEDS: ATORVASTATIN 40 MG TAB PO SCH (22:37)
[2018-12-25] MEDS: QUEtiapine 25 MG TAB PO SCH (23:21)
[2018-12-25] MEDS: levETIRAcetam 250 MG TAB PO SCH (23:21)
[2018-12-26] MEDS: CITALOPRAM HYDROBROMIDE 20 MG TAB PO SCH (07:58)
[2018-12-26] MEDS: levETIRAcetam 250 MG TAB PO SCH ×2 (07:58→21:11)
[2018-12-26] MEDS: LISINOPRIL 5 MG TAB PO SCH (07:58)
[2018-12-26] MEDS: PANTOPRAZOLE 40 MG TABLET PO SCH (07:58)
[2018-12-26] MEDS: METOPROLOL SUCCINATE (ER) 25 MG TAB.ER.24H PO SCH (07:58)
[2018-12-26 08:03] LABS: Basophils % (A) 1 %; Eosinophils # (A) 0.1 k/uL (0-0.7); Eosinophils % (A) 3 %; HCT 35.6 % (34.0-46.0); HGB 12.1 gm/dL (11.4-16.0); Lymphocytes # (A) 1.5 k/uL (1.0-4.8); Lymphocytes % (A) 31 %; MCH 31.3 pg (25.0-35.0); MCHC 34.1 g/dL (31.0-37.0); MCV 91.8 fL (80.0-100.0); Mean Platelet Volume 6.5; Monocytes # (A) 0.3 k/uL (0-1.0); Monocytes % (A) 7 %; Neutrophils # (A) 2.7 k/uL (1.3-7.7); Neutrophils % (A) 57 %; Platelet Count 204 k/uL (150-450); RBC 3.88 m/uL (3.80-5.40); RDW 13.4 % (11.5-15.5); WBC 4.7 k/uL (3.8-10.6)
[2018-12-26 08:29] LABS: African American GFR (CKD) >90 (>60 ml/min/1.73 sqM); Anion Gap 7 mmol/L; Blood Urea Nitrogen 18 mg/dL (7-17); Calcium 8.9 mg/dL (8.4-10.2); Carbon Dioxide 27 mmol/L (22-30); Chloride 109 mmol/L (98-107); Glucose 85 mg/dL (74-99); Potassium 3.9 mmol/L (3.5-5.1); Sodium 143 mmol/L (137-145)
--- NOTE | 2018-12-26 16:19 | P.HPIM ---
History of Present Illness H&P Date: 12/26/18 Chief Complaint: Increasing confusion History of presenting complaint: This is a pleasant 78-year-old patient of Dr. Sary Castle. Chronic stable medical conditions include dementia, diabetes, hypertension, hyperlipidemia, osteoarthritis. Patient presented to the ER. The daughter gives the history and the ER that the patient was more confused last few days. Because of dementia or mental status does wax and wane. But more so now. Patient is having hallucinations and more confused speech no head injury. Told the patient to take a fall earlier. No injury. No fever no pain. No shortness of breath. When I saw this patient earlier today she was sitting up in the bed reading the newspaper. She is not sure why she is here. But she was very pleasant during t he conversation. Appears comfortable. Patient is found to have infected urine the ER and started on IV ceftriaxone. Review of systems: GEN.: Tired EYES: None HEENT: None NECK: None RESPIRATORY: None CARDIOVASCULAR: None GASTROINTESTINAL: None GENITOURINARY: None MUSCULOSKELETAL: Joint pains LYMPHATICS: None HEMATOLOGICAL: None PSYCHIATRY: Forgetful NEUROLOGICAL: None Social history Patient lives alone. Daughter lives 5 minutes from her and does visit her every day. Patient does have a walker. Daughter manages her medications. Patient is good to daycare program At least 3 times a week. Physical examination: VITAL SIGNS: 98.1, 79, 16, 129/73, 66% room air GENERAL: BMI 25, sitting up in bed comfortable. EYES: Pupils equal. Conjunctiva normal. HEENT: External appearance of nose and ears normal, oral cavity grossly normal. NECK: JVD not raised; masses not palpable. HEART: First and second heart sounds are normal; no edema. LUNGS: Respiratory rate normal; clear to auscultation. ABDOMEN: Soft, nontender, liver spleen not palpable, no masses palpable. PSYCH: Patient is able to answer simple questions. Post cannot give more detailed ulcersl. NEUROLOGICAL: Cranial nerves grossly intact; no facial asymmetry, power and sensation grossly intact. LYMPHATICS: No lymph nodes palpable in the axilla and neck MUSCULOSKELETAL: Evidence of OA especially in the hands INVESTIGATIONS, reviewed in the clinical context: White count 5.7 hemoglobin 12.4 potassium 3.6 creatinine 0.77 UA positive for leukoesterase WBC Urine drug screen negative EKG tracing personally reviewed by me-mandibular paced rhythm Computed tomography scan of the brain shows-chronic age-related changes Assessment: -Patient's sensorium has been fluctuating at home rather typical of delirium likely associated with UTI seems to be responding to the antibiotic -Moderate to severe cognitive impairment from underlying late onset Alzheimer's dementia -Permanent pacemaker -Essential hypertension -Hyperlipidemia -Primary osteoarthritis Plan: Patient started and IV ceftriaxone in the ER. Home medications resumed. Spoke to the case therapist. She had spoken to daughter earlier. Patient should be a ble to return home with her daughter. Lovenox for DVT prophylaxis. Past Medical History Past Medical History: CVA/TIA, Dementia, Diabetes Mellitus, Hyperlipidemia, Hypertension, Memory Impairment, Osteoarthritis (OA), Syncope Additional Past Medical History / Comment(s): NIDDM type II-diet controlled, CVA-brain bleed 2018, DVT lower leg years ago, possible kidney stones, lower GI bleed, History of Any Multi-Drug Resistant Organisms: None Reported Past Surgical History: Bariatric Surgery, Cholecystectomy, Hysterectomy, Pacemaker, Tonsillectomy Additional Past Surgical History / Comment(s): 2018 pacemaker insertion done at [facility], lap banding, colonoscopy/polypectomy-benign Past Anesthesia/Blood Transfusion Reactions: No Reported Reaction Type of Cardiac Device: Permanent Pacemaker Device Placement Date:: 2017 Past Psychological History: No Psychological Hx Reported Smoking Status: Former smoker Past Alcohol Use History: None Reported Past Drug Use History: None Reported - Past Family History Father Family Medical History: Diabetes Mellitus Mother Family Medical History: Unable to Obtain Medications and Allergies Home Medications Medication Instructions Recorded Confirmed Type Citalopram Hydrobromide [CeleXA] 20 mg PO DAILY 05/20/16 12/25/18 History Lisinopril [Zestril] 5 mg PO DAILY 05/20/16 12/25/18 History Atorvastatin [Lipitor] 40 mg PO HS 06/12/18 12/25/18 History Pantoprazole Sodium [Protonix] 40 mg PO DAILY 06/12/18 12/25/18 History QUEtiapine [SEROquel] 25 mg PO HS 06/12/18 12/25/18 History levETIRAcetam [Keppra] 250 mg PO BID 06/12/18 12/25/18 History Metoprolol Succinate [Toprol XL] 25 mg PO DAILY 06/06/19 09/25/19 History Allergies Allergy/AdvReac Type Severity Reaction Status Date / Time No Known Allergies Allergy Verified 12/25/18 21:09 Physical Exam Vitals: Vital Signs Temp Pulse Pulse Resp BP BP Pulse Ox 12/26/18 08:00 70 16 12/26/18 07:00 97.8 F 70 16 120/66 96 12/26/18 00:26 96.9 F L 63 18 125/67 97 12/25/18 23:00 78 16 148/63 96 12/25/18 20:06 97.5 F L 71 18 130/65 96 12/25/18 19:05 98.1 F 79 16 129/73 96 Intake and Output 12/25/18 12/26/18 12/26/18 22:59 06:59 14:59 Intake Total 0 180 Balance 0 180 Intake: Oral 0 180 Other: Voiding Method Diaper # Voids 1 Weight 68.039 kg Results CBC & Chem 7: 12/26/18 07:21 12/26/18 07:21 Labs: Abnormal Lab Results - Last 24 Hours (Table) 12/25/18 12/25/18 12/25/18 Range/Units 20:28 20:28 20:35 APTT 21.4 L (22.0-30.0) sec Chloride 108 H (98-107) mmol/L BUN 21 H (7-17) mg/dL Glucose 156 H (74-99) mg/dL Urine Protein Trace H (Negative) Ur Leukocyte Esterase Large H (Negative) Urine WBC 7 H (0-5) /hpf Urine Bacteria Rare H (None) /hpf Hyaline Casts 4 H (0-2) /lpf Urine Mucus Occasional H (None) /hpf 12/26/18 Range/Units 07:21 APTT (22.0-30.0) sec Chloride 109 H (98-107) mmol/L BUN 18 H (7-17) mg/dL Glucose (74-99) mg/dL Urine Protein (Negative) Ur Leukocyte Esterase (Negative) Urine WBC (0-5) /hpf Urine Bacteria (None) /hpf Hyaline Casts (0-2) /lpf Urine Mucus (None) /hpf Thrombosis Risk Factor Assmnt - Choose All That Apply Any of the Below Risk Factors Present?: Yes Each Risk Factor Represents 3 Points: Age 75 years or older, History of DVT/PE Thrombosis Risk Factor Assessment Total Risk Factor Score: 6 Thrombosis Risk Factor Assessment Level: High Risk
[2018-12-26] MEDS: ENOXAPARIN 40 MG/0.4 ML SYRINGE SQ SCH (16:55)
[2018-12-26] MEDS: ATORVASTATIN 40 MG TAB PO SCH (21:05)
[2018-12-26] MEDS: QUEtiapine 25 MG TAB PO SCH (21:05)
[2018-12-27 07:32] VITALS: RESP 16
[2018-12-27] MEDS: METOPROLOL SUCCINATE (ER) 25 MG TAB.ER.24H PO SCH (07:34)
[2018-12-27] MEDS: CITALOPRAM HYDROBROMIDE 20 MG TAB PO SCH (07:34)
[2018-12-27] MEDS: PANTOPRAZOLE 40 MG TABLET PO SCH (07:34)
[2018-12-27] MEDS: levETIRAcetam 250 MG TAB PO SCH (07:34)
[2018-12-27] MEDS: LISINOPRIL 5 MG TAB PO SCH (07:34)
[2018-12-27] MEDS: ENOXAPARIN 40 MG/0.4 ML SYRINGE SQ SCH (07:34)
[2018-12-27 12:38] VITALS: BP 129/73; PULSE 60; TEMP 97.7
--- NOTE | 2018-12-28 22:28 | P.DS ---
Providers Date of admission: 12/25/18 22:16 Expected date of discharge: 12/28/18 Attending physician: Troy John Primary care physician: Remy Castle [facility] Hospital Course: Chief Complaint: Increasing confusion Hospital course: This is a pleasant 78-year-old patient of Dr. Sary Castle. Chronic stable medical conditions include dementia, diabetes, hypertension, hyperlipidemia, osteoarthritis. Patient presented to the ER. The daughter gives the history and the ER that the patient was more confused last few days. Because of dementia or mental status does wax and wane. But more so now. Patient is nguyen ving hallucinations and more confused. no head injury. patient had a fall earlier. No injury. No fever no pain. No shortness of breath. When I saw this patient earlier today she was sitting up in the bed reading the newspaper. She is not sure why she is here. But she was very pleasant during the conversation. Appears comfortable. Patient is found to have infected urine the ER and started on IV ceftriaxone. Spoke to the caseworker. She is overall daughter. Daughter will be taking her back home. Patient did tolerate her diet. Physical examination: VITAL SIGNS: 97.7, 60, 16, 129 with 73, 100% room air GENERAL: Sitting up, comfortable. EYES: Pupils equal. Conjunctiva normal. HEENT: External appearance of nose and ears normal, oral cavity grossly normal. NECK: JVD not raised; masses not palpable. HEART: First and second heart sounds are normal; no edema. LUNGS: Respiratory rate normal; clear to auscultation. ABDOMEN: Soft, nontender, liver spleen not palpable, no masses palpable. PSYCH: Patient is able to answer simple questions. Post cannot give more detailed ulcersl. NEUROLOGICAL: Cranial nerves grossly intact; no facial asymmetry, power and sensation grossly intact. INVESTIGATIONS, reviewed in the clinical context: B12, TSH, both normal White count 5.7 hemoglobin 12.4 potassium 3.6 creatinine 0.77 UA positive for leukoesterase WBC Urine drug screen negative EKG tracing personally reviewed by me-mandibular paced rhythm Computed tomography scan of the brain shows-chronic age-related changes Discharge diagnosis: -Acute delirium for UTI -Acute UTI from cystitis -Moderate to severe cognitive impairment from underlying late onset Alzheimer's dementia -Permanent pacemaker -Essential hypertension -Hyperlipidemia -Primary osteoarthritis Disposition: Home Patient Condition at Discharge: Stable Plan - Discharge Summary New Discharge Prescriptions: New Cephalexin [Keflex] 250 mg PO Q6HR #12 cap Continue Lisinopril [Zestril] 5 mg PO DAILY Citalopram Hydrobromide [CeleXA] 20 mg PO DAILY levETIRAcetam [Keppra] 250 mg PO BID QUEtiapine [SEROquel] 25 mg PO HS Atorvastatin [Lipitor] 40 mg PO HS Pantoprazole Sodium [Protonix] 40 mg PO DAILY Metoprolol Succinate [Toprol XL] 25 mg PO DAILY Discharge Medication List Citalopram Hydrobromide [CeleXA] 20 mg PO DAILY 05/20/16 [History] Lisinopril [Zestril] 5 mg PO DAILY 05/20/16 [History] Atorvastatin [Lipitor] 40 mg PO HS 06/12/18 [History] Pantoprazole Sodium [Protonix] 40 mg PO DAILY 06/12/18 [History] QUEtiapine [SEROquel] 25 mg PO HS 06/12/18 [History] levETIRAcetam [Keppra] 250 mg PO BID 06/12/18 [History] Metoprolol Succinate [Toprol XL] 25 mg PO DAILY 09/05/18 [History] Cephalexin [Keflex] 250 mg PO Q6HR #12 cap 12/27/18 [Rx] Follow up Appointment(s)/Referral(s): Remy Castle DO [Primary Care Provider] - 3 Days (Daughter Cherelle to arrange. ) Patient Instructions/Handouts: Urinary Tract Infection in Women (DC) Activity/Diet/Wound Care/Special Instructions: Up with assist and walker, fall precautions. Regular diet Stay well hydrated. Keep talc/powder in abdominal folds and under breasts if reddened. Discharge Disposition: HOME SELF-CARE
== END 2018-12-27 13:16 | disposition home or self-care (01) ==
LOC: EC 18:56 → 4MS4W 22:16
PROVIDERS: ADMIT Hospitalist; ATTEND Hospitalist
DX: N30.90 Cystitis, unspecified without hematuria (principal); F05 Delirium due to known physiological condition; G30.1 Alzheimer's disease with late onset; F02.80 Dementia in other diseases classified elsewhere, unspecified severity, without behavioral disturbance, psychotic disturbance, mood disturbance, and anxiety; I10 Essential (primary) hypertension; E78.5 Hyperlipidemia, unspecified; E11.9 Type 2 diabetes mellitus without complications; M19.042 Primary osteoarthritis, left hand; M19.041 Primary osteoarthritis, right hand; Z79.899 Other long term (current) drug therapy; Z95.0 Presence of cardiac pacemaker; Z86.73 Personal history of transient ischemic attack (TIA), and cerebral infarction without residual deficits; Z86.79 Personal history of other diseases of the circulatory system; Z86.718 Personal history of other venous thrombosis and embolism; Z87.19 Personal history of other diseases of the digestive system; Z98.84 Bariatric surgery status; Z90.49 Acquired absence of other specified parts of digestive tract; Z86.010 Personal history of colon polyps; Z87.891 Personal history of nicotine dependence; Z90.710 Acquired absence of both cervix and uterus; W19.XXXA Unspecified fall, initial encounter; Z83.3 Family history of diabetes mellitus
CPT/HCPCS: 96366 ×2; 96372; 96376; 96365; 99285; 36415; 93005; 80053; 80048; 84443; 82607; 82550; 84484; 85025 ×2; 85610; 85730; 81001; 87040; 80306; 83520; 70450; G0378 ×3; G0480; J1650; J0696 ×2; 80329

== ENCOUNTER 2019-01-03 17:55 | Emergency (ER) | payer MEDICARE ==
[2019-01-03 18:09] VITALS: RESP 18; TEMP 97.3
--- NOTE | 2019-01-03 20:00 | CT ---
EXAMINATION TYPE: CT brain ru wo con DATE OF EXAM: 01/03/2019 COMPARISON: 09/21/2018 HISTORY: fall Headache. Neck pain. CT DLP: 1422.5 mGycm Automated exposure control for dose reduction was used. TECHNIQUE: CT scan of the head and cervical spine are performed without contrast. FINDINGS: There is patchy hypodensity in the periventricular white matter. There is mild cerebral c ortical atrophy. Calvarium is intact. There is no mass effect nor midline shift. There is no sign of intracranial hemorrhage. Cervical vertebra have normal alignment. Disc spaces are fairly normal. There is mild hypertrophic fa cet arthropathy. Skull base is intact. I see no bony destructive process. IMPRESSION: Mild atrophy. Chronic small vessel ischemia. Brain unchanged compared to old exam. Spondylotic mild changes in the cervical spine. No fracture. No significant change compared to old ex am.
--- NOTE | 2019-01-03 20:08 | XR ---
EXAMINATION TYPE: XR shoulder complete RT DATE OF EXAM: 01/03/2019 COMPARISON: NONE HISTORY: Shoulder pain TECHNIQUE: 3 views FINDINGS: There is some spurring at the greater tuberosity of the humerus. I see no fracture nor disl ocation. There are old right-sided healed rib fractures. IMPRESSION: No acute abnormality of the right shoulder.
--- NOTE | 2019-01-03 20:09 | XR ---
EXAMINATION TYPE: XR elbow complete RT DATE OF EXAM: 01/03/2019 COMPARISON: NONE HISTORY: Pain TECHNIQUE: 3 views FINDINGS: There is soft tissue swelling over the olecranon process of the ulna. I see no fracture nor dislocation. Joint spaces are fairly normal. There is no sign of elbow joint effusion. IMPRESSION: Mild soft tissue swelling. No fracture.
--- NOTE | 2019-01-03 20:10 | XR ---
EXAMINATION TYPE: XR wrist complete RT DATE OF EXAM: 01/03/2019 COMPARISON: NONE HISTORY: Pain TECHNIQUE: 4 views FINDINGS: There is moderate narrowing and spurring at the first carpometacarpal joint. I see no acute fracture nor dislocation. There are no erosions. The tip of the ulnar styloid process is slightly ir regular and could relate to an old fracture. I see no definite acute fracture. IMPRESSION: No acute abnormality of the right wrist.
--- NOTE | 2019-01-03 20:12 | XR ---
EXAMINATION TYPE: XR knee complete RT DATE OF EXAM: 01/03/2019 COMPARISON: NONE HISTORY: Knee pain TECHNIQUE: 3 views. FINDINGS: There is calcification of the lateral meniscus. There is some narrowing of the medial joint space. Th ere is spurring on the patella. I see no fracture nor dislocation. : IMPRESSION: Chondrocalcinosis. Mild osteoarthritis. No fracture.
--- NOTE | 2019-01-03 20:43 | ED ---
Fall HPI - General Chief Complaint: Fall Stated Complaint: fall, lt knee injury Time Seen by Provider: 01/03/19 19:20 Source: patient Mode of arrival: wheelchair - History of Present Illness Initial Comments: 78-year-old female presents small history of previous CVA, dementia presents emergency department for chief complaint of fall with a right upper extremity right knee pain x few hours prior to arrival. Patient is coming in by daughter who states that while patient was walking to the car around 4:30 PM she tripped over the ledge of the sidewalk falling into the car she attempted to catch the patient who did hit her right side of her head on the vehicle and fell to the ground. Extending her right wrist. Patient was complaining of right wrist pain she states there is a small abrasion. Patient as the day progressed was complaining of right knee pain however was ambulatory after the fall. Patient denies any headache dizziness nausea vomiting neck pain. Patient denies any other pain and shoulder pain hip pain back pain or feet pain. Patient denies diplopia or visual changes. Patient denies any numbness tingling or loss sensation of the upper or lower extremities. Remaining review systems negative. Fall witnessed, no LOC. Family denies any anticoagulation therapy. - Related Data Home Medications Medication Instructions Recorded Confirmed Citalopram Hydrobromide [CeleXA] 20 mg PO DAILY 05/20/16 01/03/19 Lisinopril [Zestril] 5 mg PO DAILY 05/20/16 01/03/19 Atorvastatin [Lipitor] 40 mg PO HS 06/12/18 01/03/19 Pantoprazole Sodium [Protonix] 40 mg PO DAILY 06/12/18 01/03/19 QUEtiapine [SEROquel] 25 mg PO HS 06/12/18 01/03/19 levETIRAcetam [Keppra] 250 mg PO BID 06/12/18 01/03/19 Metoprolol Succinate [Toprol XL] 12.5 mg PO DAILY 09/05/18 01/03/19 Allergies Allergy/AdvReac Type Severity Reaction Status Date / Time No Known Allergies Allergy Verified 01/03/19 20:36 Review of Systems ROS Statement: Those systems with pertinent positive or pertinent negative responses have been documented in the HPI. ROS Other: All systems not noted in ROS Statement are negative. Past Medical History Past Medical History: CVA/TIA, Dementia, Diabetes Mellitus, Hyperlipidemia, Hypertension, Memory Impairment, Osteoarthritis (OA), Syncope Additional Past Medical History / Comment(s): NIDDM type II-diet controlled, CVA-brain bleed 2018, DVT lower leg years ago, possible kidney stones, lower GI bleed, History of Any Multi-Drug Resistant Organisms: None Reported Past Surgical History: Bariatric Surgery, Cholecystectomy, Hysterectomy, Pacemaker, Tonsillectomy Additional Past Surgical History / Comment(s): 2018 pacemaker insertion done at [facility], lap banding, colonoscopy/polypectomy-benign Past Anesthesia/Blood Transfusion Reactions: No Reported Reaction Type of Cardiac Device: Permanent Pacemaker Device Placement Date:: 2018 Past Psychological History: No Psychological Hx Reported Smoking Status: Former smoker Past Alcohol Use History: None Reported Past Drug Use History: None Reported - Past Family History Father Family Medical History: Diabetes Mellitus Mother Family Medical History: Unable to Obtain General Exam - General Exam Comments Initial Comments: General: The patient is awake and alert, in no distress, and does not appear acutely ill. Eye: +3 mm pupils are equal, round and reactive to light, extra-ocular movements are intact. No nystagmus. There is normal conjunctiva bilaterally. No signs of icterus. Ears, nose, mouth and throat: There are moist mucous membranes and no oral lesions. Neck: The neck is supple, there is no tenderness or JVD. No midline or paravertebral tenderness of the cervical spine patient is able to fully range at the cervical spine without difficulty or complaints of pain Cardiovascular: There is a regular rate and rhythm. No murmur, rub or gallop is appreciated. Respiratory: Lungs are clear to auscultation, respirations are non-labored, breath sounds are equal. No wheezes, stridor, rales, or rhonchi. Gastrointestinal: Soft, non-distended, non-tender abdomen without masses or organomegaly noted. There is no rebound or guarding present. Bowel sounds are unremarkable. Musculoskeletal: Upon inspection of the upper extremities there is no obvious gross deformities lacerations soft tissue swelling redness. Similar examination of the lower extremity. There is a very small superficial abrasion over the right anterior knee. This is a superficial abrasion over the right radial aspect of the wrist. Normal ROM, of the elbows, wrists, digits b/l. There is slight limitation of the right shoulder with overhead motion. No scapular pain. mild tenderness to palpation of the right lateral shoulder, the right elbow and right wrist. Strength 5/5 of the UE and LE joints equal b/l. Extensor mechanism intact Sensation intact of the UE b/l. Ok fingers crossed and thumbs up sign intact. Radial pulses equal bilaterally 2+. Neurological: A&O x 2-person/place. CN II-XII intact, There are no obvious motor or sensory deficits. Coordination appears grossly intact. Speech is normal. Skin: Skin is warm and dry and no rashes or lesions are noted. No scalp lesions hematomas no contusions of the scalp. No raccoon or Chavez sign., Psychiatric: Cooperative, appropriate mood & affect, normal judgment. Limitations: no limitations Course Vital Signs 01/03/19 01/03/19 18:01 20:59 Temperature 97.3 F L 97.3 F L Pulse Rate 60 63 Respiratory 18 18 Rate Blood Pressure 160/68 140/63 O2 Sat by Pulse 100 96 Oximetry Medical Decision Making - Medical Decision Making Very well-appearing 78-year-old female who is pleasantly demented alert and oriented to person and time who answers questions appropriately--presents emergency department for evaluation after fall earlier this afternoon. Patient states she does not have any significant head trauma however did hit her head on the car. There is no evidence of large hematomas scalp abrasions or lacerations. Patient has no midline tenderness to palpation of the cervical spine with full range of motion. Patient is no raccoon or Chavez sign. Patient was mostly complaining of right wrist pain and right knee pain. Plain localized tenderness no evidence of deformity or significant soft tissue swelling imaging states negative for acute osseous process. CT of the brain C-spine was obtained given patient's advanced age and history of head hitting the car. Revealing no acute process. There is no focal neurological deficits. Patient is well- appearing results were discussed with family and they're agreeable discharge at this time and are happy with plan as well as primary care follow-up. Discussed the case with attending provider Dr. James who is agreeable with plan and discharge. Disposition Clinical Impression: Fall, Abrasion, Wrist pain, Right knee pain Disposition: HOME SELF-CARE Condition: Good Instructions (If sedation given, give patient instructions): R.I.C.E. Treatment (ED), Fall Prevention (ED) Additional Instructions: Please use medication as discussed. Please follow-up with family doctor in the next 2 days. Please return to emergency room if the symptoms increase or worsen or for any other concerns. Is patient prescribed a controlled substance at d/c from ED?: No Referrals: Remy Castle DO [Primary Care Provider] - 1-2 days Time of Disposition: 20:43
[2019-01-03 21:00] VITALS: BP 140/63; PULSE 63
== END 2019-01-03 21:07 | disposition home or self-care (01) ==
LOC: EC 17:55
DX: S60.811A Abrasion of right wrist, initial encounter (principal); S80.211A Abrasion, right knee, initial encounter; E78.5 Hyperlipidemia, unspecified; I10 Essential (primary) hypertension; E11.9 Type 2 diabetes mellitus without complications; Z79.899 Other long term (current) drug therapy; Z98.84 Bariatric surgery status; Z86.73 Personal history of transient ischemic attack (TIA), and cerebral infarction without residual deficits; Z86.718 Personal history of other venous thrombosis and embolism; Z95.0 Presence of cardiac pacemaker; Z87.891 Personal history of nicotine dependence; W01.0XXA Fall on same level from slipping, tripping and stumbling without subsequent striking against object, initial encounter
CPT/HCPCS: 70450; 72125; 99284

== ENCOUNTER 2019-04-28 08:41 | Emergency (ER) | payer MEDICARE ==
[2019-04-28 08:54] VITALS: RESP 18; TEMP 98
[2019-04-28] MEDS ORDERED: ONDANSETRON 4 MG/2 ML VIAL IVP STA (09:17)
[2019-04-28] MEDS ORDERED: MORPHINE SULFATE 4 MG/ML SYRINGE IV STA (09:17)
[2019-04-28] MEDS ORDERED: SODIUM CHLORIDE 0.9% 1,000 ML IV STA (09:17)
--- NOTE | 2019-04-28 09:27 | ED ---
Abdominal Pain HPI - General Chief Complaint: Abdominal Pain Stated Complaint: lower abd pain Time Seen by Provider: 04/28/19 09:03 Source: patient, family Mode of arrival: wheelchair Limitations: altered mental status, physical limitation - History of Present Illness Initial Comments: Patient is a 78-year-old female, with past medical history of dementia diabetes, hypertension, presenting to emergency Department with complaints of lower abdominal pain that started this morning. Patient's daughter is here with her now and states she woke up early this morning crying in pain holding her stomach. Daughter states history of cholecystectomy, no other abdominal surgeries. Her last bowel movement was 1-2 days ago. She has been dealing with constipation however the daughter gave her a laxative which did improve her symptoms. Daughter denies patient having a fever, vomiting, diarrhea. There are no other complaints at this time. Upon arrival to the ER, her vital signs are stable. - Related Data Home Medications Medication Instructions Recorded Confirmed Citalopram Hydrobromide [CeleXA] 20 mg PO DAILY 05/20/16 04/28/19 Lisinopril [Zestril] 5 mg PO DAILY 05/20/16 04/28/19 Atorvastatin [Lipitor] 40 mg PO HS 06/12/18 04/28/19 Pantoprazole Sodium [Protonix] 40 mg PO DAILY 06/12/18 04/28/19 levETIRAcetam [Keppra] 250 mg PO BID 06/12/18 04/28/19 Metoprolol Succinate [Toprol XL] 25 mg PO DAILY 09/05/18 04/28/19 QUEtiapine [SEROquel] 50 mg PO HS 04/28/19 04/28/19 lamoTRIgine [LaMICtal Xr] 50 mg PO DAILY 04/28/19 04/28/19 Allergies Allergy/AdvReac Type Severity Reaction Status Date / Time No Known Allergies Allergy Verified 04/28/19 10:26 Review of Systems ROS Statement: Those systems with pertinent positive or pertinent negative responses have been documented in the HPI. ROS Other: All systems not noted in ROS Statement are negative. Past Medical History Past Medical History: CVA/TIA, Dementia, Diabetes Mellitus, Hyperlipidemia, Hypertension, Memory Impairment, Osteoarthritis (OA), Syncope Additional Past Medical History / Comment(s): NIDDM type II-diet controlled, CVA-brain bleed 2017, DVT lower leg years ago, possible kidney stones, lower GI bleed, History of Any Multi-Drug Resistant Organisms: None Reported Past Surgical History: Bariatric Surgery, Cholecystectomy, Hysterectomy, Pacemaker, Tonsillectomy Additional Past Surgical History / Comment(s): 2018 pacemaker insertion done at [facility], lap banding, colonoscopy/polypectomy-benign left hip replacement Past Anesthesia/Blood Transfusion Reactions: No Reported Reaction Type of Cardiac Device: Permanent Pacemaker Device Placement Date:: 2017 Past Psychological History: No Psychological Hx Reported Smoking Status: Former smoker Past Alcohol Use History: None Reported Past Drug Use History: None Reported - Past Family History Father Family Medical History: Diabetes Mellitus Mother Family Medical History: Unable to Obtain General Exam - General Exam Comments Initial Comments: GENERAL: Well-appearing, well-nourished and in no acute distress. HEAD: Atraumatic, normocephalic. EYES: Pupils equal round and reactive to light, extraocular movements intact, sclera anicteric, conjunctiva are normal. ENT: TMs normal, nares patent, oropharynx clear without exudates. Moist mucous membranes. NECK: Normal range of motion, supple without lymphadenopathy or JVD. LUNGS: Breath sounds clear to auscultation bilaterally and equal. No wheezes rales or rhonchi. HEART: Regular rate and rhythm without murmurs, rubs or gallops. ABDOMEN: Lower abdominal generalized abdominal pain with palpation. She also has some mild umbilical pain as well. Soft, normoactive bowel sounds. No guarding, no rebound. No masses appreciated. : Deferred EXTREMITIES: Normal range of motion, no pitting or edema. No clubbing or cyanosis. NEUROLOGICAL: Cranial nerves II through XII grossly intact. PSYCH: Normal mood, normal affect. History of dementia. SKIN: Warm, Dry, normal turgor, no rashes or lesions noted. Limitations: altered mental status, physical limitation Course Vital Signs 04/28/19 04/28/19 08:52 13:03 Temperature 98 F Pulse Rate 71 78 Respiratory 18 18 Rate Blood Pressure 128/73 144/67 O2 Sat by Pulse 98 97 Oximetry Medical Decision Making - Medical Decision Making Patient is 78-year-old female history dementia presenting with lower abdominal pain since this morning. Vitals are stable. Lab work shows no acute abnormalities. CT of the abdomen shows moderate distal gastric enteritis. There is also suspicious severe thickening over the middle to distal esophagus. Esophageal neoplasm needs to be considered. Follow-up endoscopic advise. I discussed these findings with the patient and patient's daughter. Patient was also given fluids and pain control and has been resting comfortably. Vital sig ns remained stable. I discussed with this is most likely enteritis. Patient will continue to increase her fluid intake. She will follow up with her PCP. Referral to GI given. Return parameters were discussed with the patient's daughter and she verbalized understanding. Case discussed with Dr. Langston. - Lab Data Result diagrams: 04/28/19 09:00 04/28/19 09:00 Lab Results 04/28/19 04/28/19 04/28/19 Range/Units 09:00 09:00 09:00 WBC 5.9 (3.8-10.6) k/uL RBC 4.21 (3.80-5.40) m/uL Hgb 13.0 (11.4-16.0) gm/dL Hct 40.4 (34.0-46.0) % MCV 95.8 (80.0-100.0) fL MCH 30.8 (25.0-35.0) pg MCHC 32.2 (31.0-37.0) g/dL RDW 12.7 (11.5-15.5) % Plt Count 189 (150-450) k/uL Neutrophils % 69 % Lymphocytes % 21 % Monocytes % 4 % Eosinophils % 3 % Basophils % 1 % Neutrophils # 4.1 (1.3-7.7) k/uL Lymphocytes # 1.3 (1.0-4.8) k/uL Monocytes # 0.3 (0-1.0) k/uL Eosinophils # 0.2 (0-0.7) k/uL Basophils # 0.1 (0-0.2) k/uL PT (9.0-12.0) sec INR (<1.2) APTT (22.0-30.0) sec Sodium 144 (137-145) mmol/L Potassium 3.9 (3.5-5.1) mmol/L Chloride 110 H (98-107) mmol/L Carbon Dioxide 29 (22-30) mmol/L Anion Gap 5 mmol/L BUN 17 (7-17) mg/dL Creatinine 0.66 (0.52-1.04) mg/dL Est GFR (CKD-EPI)AfAm >90 (>60 ml/min/1.73 sqM) Est GFR (CKD-EPI)NonAf 86 (>60 ml/min/1.73 sqM) Glucose 112 H (74-99) mg/dL Plasma Lactic Acid Crow 1.4 (0.7-2.0) mmol/L Calcium 8.8 (8.4-10.2) mg/dL Total Bilirubin 0.8 (0.2-1.3) mg/dL AST 33 (14-36) U/L ALT 27 (4-34) U/L Alkaline Phosphatase 76 (38-126) U/L Total Protein 6.4 (6.3-8.2) g/dL Albumin 3.4 L (3.5-5.0) g/dL Amylase 62 (30-110) U/L Lipase 103 (23-300) U/L Urine Color Urine Appearance (Clear) Urine pH (5.0-8.0) Ur Specific [place] (1.001-1.035) Urine Protein (Negative) Urine Glucose (UA) (Negative) Urine Ketones (Negative) Urine Blood (Negative) Urine Nitrite (Negative) Urine Bilirubin (Negative) Urine Urobilinogen (<2.0) mg/dL Ur Leukocyte Esterase (Negative) Urine RBC (0-5) /hpf Urine WBC (0-5) /hpf Urine Mucus (None) /hpf 04/28/19 04/28/19 Range/Units 09:00 09:35 WBC (3.8-10.6) k/uL RBC (3.80-5.40) m/uL Hgb (11.4-16.0) gm/dL Hct (34.0-46.0) % MCV (80.0-100.0) fL MCH (25.0-35.0) pg MCHC (31.0-37.0) g/dL RDW (11.5-15.5) % Plt Count (150-450) k/uL Neutrophils % % Lymphocytes % % Monocytes % % Eosinophils % % Basophils % % Neutrophils # (1.3-7.7) k/uL Lymphocytes # (1.0-4.8) k/uL Monocytes # (0-1.0) k/uL Eosinophils # (0-0.7) k/uL Basophils # (0-0.2) k/uL PT 10.1 (9.0-12.0) sec INR 1.0 (<1.2) APTT 19.8 L (22.0-30.0) sec Sodium (137-145) mmol/L Potassium (3.5-5.1) mmol/L Chloride (98-107) mmol/L Carbon Dioxide (22-30) mmol/L Anion Gap mmol/L BUN (7-17) mg/dL Creatinine (0.52-1.04) mg/dL Est GFR (CKD-EPI)AfAm (>60 ml/min/1.73 sqM) Est GFR (CKD-EPI)NonAf (>60 ml/min/1.73 sqM) Glucose (74-99) mg/dL Plasma Lactic Acid Crow (0.7-2.0) mmol/L Calcium (8.4-10.2) mg/dL Total Bilirubin (0.2-1.3) mg/dL AST (14-36) U/L ALT (4-34) U/L Alkaline Phosphatase (38-126) U/L Total Protein (6.3-8.2) g/dL Albumin (3.5-5.0) g/dL Amylase (30-110) U/L Lipase (23-300) U/L Urine Color Yellow Urine Appearance Clear (Clear) Urine pH 6.5 (5.0-8.0) Ur Specific [place] 1.023 (1.001-1.035) Urine Protein Negative (Negative) Urine Glucose (UA) Negative (Negative) Urine Ketones Negative (Negative) Urine Blood Negative (Negative) Urine Nitrite Negative (Negative) Urine Bilirubin Negative (Negative) Urine Urobilinogen <2.0 (<2.0) mg/dL Ur Leukocyte Esterase Trace H (Negative) Urine RBC <1 (0-5) /hpf Urine WBC <1 (0-5) /hpf Urine Mucus Rare H (None) /hpf Disposition Clinical Impression: Abdominal pain, Gastroenteritis Disposition: HOME SELF-CARE Condition: Stable Instructions (If sedation given, give patient instructions): Abdominal Pain (ED) Additional Instructions: Please return to the Emergency Department if symptoms worsen or any other concerns. Continue to increase fluid intake. Follow up with GI as discussed. Is patient prescribed a controlled substance at d/c from ED?: No Referrals: Remy Castle DO [Primary Care Provider] - 1-2 days Justin Morillo MD [STAFF PHYSICIAN] - 1-2 days
[2019-04-28 09:28] LABS: Basophils # (A) 0.1 k/uL (0-0.2); Basophils % (A) 1 %; Eosinophils # (A) 0.2 k/uL (0-0.7); Eosinophils % (A) 3 %; HCT 40.4 % (34.0-46.0); Lymphocytes # (A) 1.3 k/uL (1.0-4.8); Lymphocytes % (A) 21 %; MCH 30.8 pg (25.0-35.0); MCHC 32.2 g/dL (31.0-37.0); MCV 95.8 fL (80.0-100.0); Mean Platelet Volume 7.5; Monocytes # (A) 0.3 k/uL (0-1.0); Monocytes % (A) 4 %; Neutrophils # (A) 4.1 k/uL (1.3-7.7); Neutrophils % (A) 69 %; Platelet Count 189 k/uL (150-450); RBC 4.21 m/uL (3.80-5.40); RDW 12.7 % (11.5-15.5); WBC 5.9 k/uL (3.8-10.6)
[2019-04-28 09:45] LABS: ALT 27 U/L (4-34); AST 33 U/L (14-36); African American GFR (CKD) >90 (>60 ml/min/1.73 sqM); Albumin 3.4 g/dL (3.5-5.0); Alkaline Phosphatase 76 U/L (38-126); Amylase 62 U/L (30-110); Anion Gap 5 mmol/L; Blood Urea Nitrogen 17 mg/dL (7-17); Calcium 8.8 mg/dL (8.4-10.2); Carbon Dioxide 29 mmol/L (22-30); Chloride 110 mmol/L (98-107); Glucose 112 mg/dL (74-99); Non-African American GFR(CKD) 86 (>60 ml/min/1.73 sqM); Potassium 3.9 mmol/L (3.5-5.1); Sodium 144 mmol/L (137-145); Total Bilirubin 0.8 mg/dL (0.2-1.3); Total Protein 6.4 g/dL (6.3-8.2)
[2019-04-28 09:59] LABS: Appearance,Urine Clear (Clear); Bilirubin,Urine Negative (Negative); Blood,Urine Negative (Negative); Color,Urine Yellow; Glucose,Urine (UA) Negative (Negative); Ketones,Urine Negative (Negative); Leukocyte Esterase,Urine Trace (Negative); Mucus,Urine Rare /hpf; Nitrite,Urine Negative (Negative); PH, Urine 6.5 (5.0-8.0); Protein,Urine Negative (Negative); RBC,Urine <1 /hpf (0-5); Specific Gravity,Urine 1.023 (1.001-1.035); Urobilinogen,Urine <2.0 mg/dL (<2.0); WBC,Urine <1 /hpf (0-5)
[2019-04-28 10:01] LABS: Prothrombin Time 10.1 sec (9.0-12.0)
[2019-04-28 10:05] LABS: Partial Thromboplastin Time 19.8 sec (22.0-30.0)
--- NOTE | 2019-04-28 11:56 | CT ---
EXAMINATION TYPE: CT abdomen pelvis w con DATE OF EXAM: 04/28/2019 HISTORY: abdominal pain, acute, nonlocalized CT DLP: 1624.7mGycm Automated Exposure Control for Dose Reduction was Utilized. CONTRAST: CT scan of the abdomen and pelvis is performed with IV Contrast, patient injected with 100 mL of Isov ue 300. COMPARISON: None. FINDINGS: LUNG BASES: Bibasilar linear scarring and/or atelectasis. Heart size upper limits of normal partial v isualization of pacemaker leads.. LIVER/GB: Cholecystectomy clips. Slight biliary prominence. Probable cholecystectomy. Liver not suspi ciously enlarged. PANCREAS: No significant abnormality is seen. SPLEEN: No significant abnormality is seen. ADRENALS: No significant abnormality is seen. KIDNEYS: Symmetric cortical medullary uptake and excretion without hydronephrosis seen bilaterally. BOWEL: Lap band device epigastric region. Lap band position and angle satisfactory. There is debris f illed moderately dilated stomach. Proximal to this there is severe concentric wall thickening of the esophagus only partially imaged. Food product and stomach is present with air-fluid level. There is f airly severe wall thickening at level of gastric antrum. Proximal small bowel loops left upper quadra nt are prominent but not greater than 3 cm dilated. Small bowel loops throughout the majority of the abdomen and pelvis show no suspicious dilatation. Fecal material is seen in nondistended colon along the periphery. [id number] wall thickening in the rectum. UTERUS/ADNEXA: Uterus surgically absent or markedly atrophic. Trace free fluid pelvis axial image 72 noted. LYMPH NODES: No greater than 1cm abdominal or pelvic lymph nodes are appreciated. OSSEOUS STRUCTURES: Helical left hip arthroplasty causes streak artifact limiting evaluation of pelvi c structures. There is narrowing and subchondral cystic change of pubic symphysis. There is some narr owing in spurring at right sacroiliac joint. Osseous structures are demineralized. Multilevel spurrin g in the spine. Multilevel facet arthropathy mid to lower lumbar spine. OTHER: Moderate calcified plaque of the aorta extends into branch vessels. Small fat containing ventr al wall hernia along vertical scar axial image 64. IMPRESSION: 1. Lap band location and position are thought Satisfactory. There is moderate dilatation and debris f illed distal esophagus noted above LAP-BAND. In addition there is suspicious severe concentric wall t hickening visualized portion of the mid to distal esophagus. Esophageal neoplasm needs to be consider ed. Follow-up endoscopy advised. 2. Overall nonobstructive bowel gas pattern. Possible moderate to severe distal gastric antritis, cor relate clinically. 3. Trace free fluid in pelvis of uncertain etiology.
[2019-04-28 13:04] VITALS: BP 144/67; PULSE 78
== END 2019-04-28 13:03 | disposition home or self-care (01) ==
LOC: EC 08:41
DX: K52.9 Noninfective gastroenteritis and colitis, unspecified (principal); K22.8 Other specified diseases of esophagus; F03.90 Unspecified dementia, unspecified severity, without behavioral disturbance, psychotic disturbance, mood disturbance, and anxiety; E11.9 Type 2 diabetes mellitus without complications; I10 Essential (primary) hypertension; Z87.891 Personal history of nicotine dependence; E78.5 Hyperlipidemia, unspecified; M19.90 Unspecified osteoarthritis, unspecified site; Z79.899 Other long term (current) drug therapy; Z86.718 Personal history of other venous thrombosis and embolism; Z90.49 Acquired absence of other specified parts of digestive tract; Z86.73 Personal history of transient ischemic attack (TIA), and cerebral infarction without residual deficits; Z87.19 Personal history of other diseases of the digestive system; Z95.0 Presence of cardiac pacemaker
CPT/HCPCS: 36415; 80053; 82150; 83605; 83690; 85025; 85610; 85730; 81001; 74177; 99284; 96374; 96375; 96361; J2270; J2405; Q9967

== ENCOUNTER → 2019-09-02 | Outpatient (CLI) | payer MEDICARE | END | disposition home or self-care (01) | LOC: LABWHC1 10:01 | PROVIDERS: ATTEND Family Medicine | DX: Z02.2 Encounter for examination for admission to residential institution (principal); Z11.59 Encounter for screening for other viral diseases ==

== ENCOUNTER → 2020-01-19 | Outpatient (CLI) | payer MEDICARE | END | disposition home or self-care (01) | LOC: LABWHC1 14:45 | PROVIDERS: ATTEND Family Medicine | DX: Z20.828 Contact with and (suspected) exposure to other viral communicable diseases (principal) | CPT/HCPCS: U0003; C9803 ==

== ENCOUNTER → 2020-08-06 | Outpatient (CLI) | payer MEDICARE ==
--- NOTE | 2020-08-06 18:11 | XR ---
EXAMINATION TYPE: XR hand complete RT DATE OF EXAM: 08/06/2020 COMPARISON: 01/03/2019 right wrist radiograph HISTORY: Right hand pain after fall. Z91.81. TECHNIQUE: AP, oblique, and lateral views of the right hand FINDINGS: No acute fracture. No dislocation. There are degenerative changes at the first carpometacar pal joint, the first interphalangeal joint, and the third and fourth distal interphalangeal joints. T here is decreased osseous mineralization. No significant soft tissue swelling. IMPRESSION: No acute fracture or dislocation of the right hand.
== END | disposition home or self-care (01) ==
LOC: RADXRMAIN 15:00
PROVIDERS: ATTEND Family Medicine
DX: M79.641 Pain in right hand (principal)

== ENCOUNTER 2021-11-30 21:22 | Emergency (ER) | payer MEDICARE ==
[2021-11-30 21:34] VITALS: BP 173/102; PULSE 109; RESP 18; TEMP 98
[2021-11-30] MEDS ORDERED: PANTOPRAZOLE 40 MG/10 ML VIAL IVP STA (21:40)
[2021-11-30] MEDS ORDERED: ONDANSETRON 4 MG/2 ML VIAL IVP STA (21:40)
[2021-11-30] MEDS ORDERED: SODIUM CHLORIDE 0.9% 1,000 ML IV STA ×2 (21:40)
--- NOTE | 2021-11-30 21:43 | ED ---
Nausea/Vomiting/Diarrhea HPI - General Chief complaint: Nausea/Vomiting/Diarrhea Stated complaint: Vomiting Time Seen by Provider: 11/30/21 21:27 Source: EMS, RN notes reviewed, old records reviewed Mode of arrival: EMS Limitations: altered mental status - History of Present Illness Initial comments: This is a 81-year-old female to the emergency department for evaluation. History of altered mental status. Dementia. Patient is a poor strain secondary to history. Patient has had 1 week of nausea and vomiting. No abdominal pain no fevers no other complaints no new medications no change in medications. Patient has not stopped any medications. Patient denies any specific abdominal pain. Was without fever MD complaint: nausea, vomiting -: week(s) Description of Vomiting: watery Description of Diarrhea: water Associated Abdominal Pain: Yes Location: diffuse Radiation: none Severity scale (1-10): 3 Quality: cramping Consistency: constant Improves with: none Worsens with: eating, vomiting Context: history of abdominal surgery Associated Symptoms: loss of appetite, nausea/vomiting, weakness - Related Data Home Medications Medication Instructions Recorded Confirmed Citalopram Hydrobromide [CeleXA] 20 mg PO DAILY 05/20/16 04/28/19 lisinopriL [Zestril] 5 mg PO DAILY 05/20/16 04/28/19 Atorvastatin [Lipitor] 40 mg PO HS 06/12/18 04/28/19 Pantoprazole Sodium [Protonix] 40 mg PO DAILY 06/12/18 04/28/19 levETIRAcetam [Keppra] 250 mg PO BID 06/12/18 04/28/19 Metoprolol Succinate [Toprol XL] 25 mg PO DAILY 09/05/18 04/28/19 QUEtiapine [SEROquel] 50 mg PO HS 04/28/19 04/28/19 lamoTRIgine [LaMICtal Xr] 50 mg PO DAILY 04/28/19 04/28/19 Allergies Allergy/AdvReac Type Severity Reaction Status Date / Time No Known Allergies Allergy Verified 04/28/19 10:26 Review of Systems ROS Statement: Those systems with pertinent positive or pertinent negative responses have been documented in the HPI. ROS Other: All systems not noted in ROS Statement are negative. Past Medical History Past Medical History: CVA/TIA, Dementia, Diabetes Mellitus, Hyperlipidemia, Hypertension, Memory Impairment, Osteoarthritis (OA), Syncope Additional Past Medical History / Comment(s): NIDDM type II-diet controlled, CVA-brain bleed 2018, DVT lower leg years ago, possible kidney stones, lower GI bleed, History of Any Multi-Drug Resistant Organisms: None Reported Past Surgical History: Bariatric Surgery, Cholecystectomy, Hysterectomy, Pacemaker, Tonsillectomy Additional Past Surgical History / Comment(s): 2018 pacemaker insertion done at [facility], lap banding, colonoscopy/polypectomy-benign left hip replaceme nt Past Anesthesia/Blood Transfusion Reactions: No Reported Reaction Type of Cardiac Device: Permanent Pacemaker Device Placement Date:: 2017 Past Psychological History: No Psychological Hx Reported Past Alcohol Use History: None Reported Past Drug Use History: None Reported - Past Family History Father Family Medical History: Diabetes Mellitus Mother Family Medical History: Unable to Obtain General Exam General appearance: alert, in no apparent distress, anxious Head exam: Present: atraumatic, normocephalic, normal inspection Eye exam: Present: normal appearance, PERRL, EOMI. Absent: scleral icterus, conjunctival injection, periorbital swelling ENT exam: Present: normal exam, mucous membranes dry Neck exam: Present: normal inspection. Absent: tenderness, meningismus, lymphadenopathy Respiratory exam: Present: normal lung sounds bilaterally. Absent: respiratory distress, wheezes, rales, rhonchi, stridor Cardiovascular Exam: Present: normal rhythm, tachycardia, normal heart sounds. Absent: systolic murmur, diastolic murmur, rubs, gallop, clicks GI/Abdominal exam: Present: soft, normal bowel sounds. Absent: distended, tenderness, guarding, rebound, rigid Extremities exam: Present: normal inspection, full ROM, normal capillary refill. Absent: tenderness, pedal edema, joint swelling, calf tenderness Back exam: Present: normal inspection Neurological exam: Present: alert, oriented X3, CN II-XII intact Psychiatric exam: Present: normal affect, normal mood Skin exam: Present: warm, dry, intact, normal color. Absent: rash Course Vital Signs 11/30/21 21:27 Temperature 98 F Pulse Rate 109 H Respiratory 18 Rate Blood Pressure 173/102 O2 Sat by Pulse 93 L Oximetry - Reevaluation(s) Reevaluation #1: 11/30/21 21:43 Medical record is reviewed Reevaluation #2: 11/30/21 23:35 Patient symptoms are improved here in the ER no active vomiting Reevaluation #3: 11/30/21 23:35 Patient family informed results and questions answered Medical Decision Making - Medical Decision Making 81 female permanent for evaluation no abdominal pain active nausea and vomiting prior to arrival prior ER visit with computed tomography scan x-ray which were normal. Patient has normal lab work today and can be discharged home - Lab Data Result diagrams: 11/30/21 22:06 11/30/21 22:06 Lab Results 11/30/21 11/30/21 11/30/21 Range/Units 22:06 22:06 22:06 WBC 7.4 (3.8-10.6) k/uL RBC 4.32 (3.80-5.40) m/uL Hgb 13.9 (11.4-16.0) gm/dL Hct 42.8 (34.0-46.0) % MCV 98.9 (80.0-100.0) fL MCH 32.2 (25.0-35.0) pg MCHC 32.6 (31.0-37.0) g/dL RDW 12.4 (11.5-15.5) % Plt Count 212 (150-450) k/uL MPV 7.4 Neutrophils % 78 % Lymphocytes % 17 % Monocytes % 3 % Eosinophils % 1 % Basophils % 1 % Neutrophils # 5.8 (1.3-7.7) k/uL Lymphocytes # 1.3 (1.0-4.8) k/uL Monocytes # 0.2 (0-1.0) k/uL Eosinophils # 0.1 (0-0.7) k/uL Basophils # 0.0 (0-0.2) k/uL Sodium 145 (137-145) mmol/L Potassium 4.1 (3.5-5.1) mmol/L Chloride 109 H (98-107) mmol/L Carbon Dioxide 26 (22-30) mmol/L Anion Gap 10 mmol/L BUN 15 (7-17) mg/dL Creatinine 0.82 (0.52-1.04) mg/dL Est GFR (CKD-EPI)AfAm 78 (>60 ml/min/1.73 sqM) Est GFR (CKD-EPI)NonAf 68 (>60 ml/min/1.73 sqM) Glucose 145 H (74-99) mg/dL Calcium 8.9 (8.4-10.2) mg/dL Total Bilirubin 0.5 (0.2-1.3) mg/dL AST 20 (14-36) U/L ALT 11 (4-34) U/L Alkaline Phosphatase 73 (38-126) U/L Troponin I <0.012 (0.000-0.034) ng/mL Total Protein 6.4 (6.3-8.2) g/dL Albumin 3.6 (3.5-5.0) g/dL Amylase 81 (30-110) U/L Lipase 56 (23-300) U/L Disposition Clinical Impression: Dizziness, Dehydration, Gastroenteritis Disposition: HOME SELF-CARE Condition: Good Instructions (If sedation given, give patient instructions): Acute Nausea and Vomiting (ED) Is patient prescribed a controlled substance at d/c from ED?: No Referrals: Nonstaff,Physician [Primary Care Provider] - 1-2 days Time of Disposition: 23:35
[2021-11-30 22:19] LABS: Basophils % (A) 1 %; Eosinophils # (A) 0.1 k/uL (0-0.7); Eosinophils % (A) 1 %; HCT 42.8 % (34.0-46.0); HGB 13.9 gm/dL (11.4-16.0); Lymphocytes # (A) 1.3 k/uL (1.0-4.8); Lymphocytes % (A) 17 %; MCH 32.2 pg (25.0-35.0); MCHC 32.6 g/dL (31.0-37.0); MCV 98.9 fL (80.0-100.0); Mean Platelet Volume 7.4; Monocytes # (A) 0.2 k/uL (0-1.0); Monocytes % (A) 3 %; Neutrophils # (A) 5.8 k/uL (1.3-7.7); Neutrophils % (A) 78 %; Platelet Count 212 k/uL (150-450); RBC 4.32 m/uL (3.80-5.40); RDW 12.4 % (11.5-15.5); WBC 7.4 k/uL (3.8-10.6)
[2021-11-30 22:45] LABS: Albumin 3.6 g/dL (3.5-5.0); Calcium 8.9 mg/dL (8.4-10.2); Potassium 4.1 mmol/L (3.5-5.1); Total Bilirubin 0.5 mg/dL (0.2-1.3); Total Protein 6.4 g/dL (6.3-8.2)
== END 2021-11-30 23:54 | disposition home or self-care (01) ==
LOC: EC 21:22
DX: K52.9 Noninfective gastroenteritis and colitis, unspecified (principal); E86.0 Dehydration; E11.9 Type 2 diabetes mellitus without complications; E78.5 Hyperlipidemia, unspecified; I10 Essential (primary) hypertension; M19.90 Unspecified osteoarthritis, unspecified site; Z86.73 Personal history of transient ischemic attack (TIA), and cerebral infarction without residual deficits; Z79.899 Other long term (current) drug therapy
CPT/HCPCS: 36415; 80053; 82150; 83690; 84484; 85025; 99284; 96374; 96375; J2405; C9113